=== PATIENT | male | born 1970 | race Caucasian/White ===

== ENCOUNTER 2017-09-13 10:10 | Emergency (ER) | payer SELFPAY ==
[2017-09-13] MEDS ORDERED: MORPHINE SULFATE 10 MG/ML INJ IM ONE (11:38)
[2017-09-13] MEDS ORDERED: ONDANSETRON 4 MG TAB.RAPDIS PO ONE (11:38)
--- NOTE | 2017-09-13 11:40 | ER Document Report ---
HPI - HPI Patient complains to provider of: Right arm is dislocated Onset: Other Onset/Duration: Sudden Quality of pain: Throbbing Severity: Moderate Pain Level: 4 Context: Patient complains of pain from right shoulder to right elbow for about the last week and a half. Has been seen by 2 different doctors in the last week and a half, but no x-rays have been done. Medications they have given have not helped. Patient denies injury. Associated Symptoms: None Exacerbated by: Movement Relieved by: Denies Similar symptoms previously: Yes Recently seen / treated by doctor: Yes - ROS ROS below otherwise negative: Yes Systems Reviewed and Negative: Yes All other systems reviewed and negative - CONSTITUTIONAL Constitutional: DENIES: Fever - EENT EENT: DENIES: Congestion - NEURO Neurology: DENIES: Headache - CARDIOVASCULAR Cardiovascular: DENIES: Chest pain - RESPIRATORY Respiratory: DENIES: Trouble Breathing - GASTROINTESTINAL Gastrointestinal: DENIES: Abdominal Pain - URINARY Urinary: DENIES: Dysuria - MUSCULOSKELETAL Musculoskeletal: REPORTS: Extremity pain - DERM Skin Color: Normal Past Medical History - General Information source: Patient - Social History Smoking Status: Unknown if Ever Smoked Chew tobacco use (# tins/day): No Frequency of alcohol use: None Drug Abuse: None Lives with: Family Family History: Reviewed & Not Pertinent - Medical History Medical History: Negative Surgical Hx: Negative Vertical Provider Document - CONSTITUTIONAL Agree With Documented VS: Yes Exam Limitations: No Limitations General Appearance: WD/WN, Mild Distress - HEENT HEENT: Atraumatic, Normocephalic - RESPIRATORY Respiratory: Breath Sounds Normal, No Respiratory Distress - CARDIOVASCULAR Cardiovascular: Regular Rate, Regular Rhythm - GI/ABDOMEN Gastrointestinal: Abdomen Soft - MUSCULOSKELETAL/EXTREMETIES Musculoskeletal/Extremeties: Tender Notes: Patient has shoulder sling on in room. Patient is tender from right shoulder down to right elbow. Pain with movement of arm, is unable to raise right arm. Neurovascular and sensation is intact - NEURO Level of Consciousness: Awake, Alert, Appropriate - DERM Integumentary: Warm, Dry Course - Re-evaluation Re-evalutation: 09/13/17 13:13 Patient made aware of x-ray results. Follow-up appointment scheduled with orthopedics today at 1430, patient scheduled to see Dr. Lind tomorrow at noon. Patient made aware of these appointments. Consulted Dr. Renteria regarding this patient H&P and follow-up. 09/13/17 19:32 Discharge - Discharge Clinical Impression: Lytic lesion of bone on x-ray Humerus shaft fracture Qualifiers: Encounter type: initial encounter Fracture type: closed Fracture morphology: unspecified fracture morphology Laterality: right Qualified Code(s): S42.301A - Unspecified fracture of shaft of humerus, right arm, initial encounter for closed fracture Condition: Good Disposition: HOME, SELF-CARE Additional Instructions: Pain medications as prescribed Follow-up with orthopedic today at 1430 as scheduled. Address is on your discharge paperwork Follow-up with Dr. Lind, oncologist, tomorrow at noon. Address is on your discharge paperwork Return as needed Prescriptions: Oxycodone HCl/Acetaminophen [Percocet 10-325 Mg Tablet] 1 each PO PRN PRN #20 tablet PRN Reason: Referrals: KATIA ARAUJO PA-C [ALLIED HEALTH PROFESSIONAL] - Follow up as needed DHEERAJ LIND MD [ACTIVE STAFF] - Follow up as needed
--- NOTE | 2017-09-13 12:25 | RADIOLOGY REPORT (SQ) ---
EXAM DESCRIPTION: HUMERUS RIGHT COMPLETED DATE/TIME: 09/13/2017 11:47 am REASON FOR STUDY: pain, decreased ROM COMPARISON: None. NUMBER OF VIEWS: Two views. TECHNIQUE: Two radiographic images were acquired of the right humerus to include elbow and shoulder in at least one projection. LIMITATIONS: None. FINDINGS: MINERALIZATION: Overall bone density is normal. However, there is a lytic lesion in the m id diaphysis of the right humerus measuring at least 3.5 cm in diameter, worrisome for a metastatic l esion. BONES: Pathologic fracture through a 3.5 cm lytic lesion in the right mid diaphysis, of the humerus. This is acute, and minimally angulated. No foreshortening at the fracture site. SOFT TISSUES: No obvious swelling or foreign body. OTHER: No other significant finding. IMPRESSION: Pathologic fracture right mid humeral diaphysis, through a 3.5 cm lytic lesion worrisome for metastatic disease. A primary plasmacytoma in the right humeral diaphysis is also possible. TECHNICAL DOCUMENTATION: JOB ID: [id number] [employer]- All Rights Reserved
[2017-09-13 13:40] VITALS: BP 131/114
== END 2017-09-13 13:40 | disposition home or self-care (01) ==
LOC: ER 10:10
DX: S42.301A Unspecified fracture of shaft of humerus, right arm, initial encounter for closed fracture (principal); X58.XXXA Exposure to other specified factors, initial encounter; M89.9 Disorder of bone, unspecified
CPT/HCPCS: 99283; 96372; 73060; S0119; J2270

== ENCOUNTER → 2017-09-15 | Outpatient (CLI) | payer SELFPAY ==
[2017-09-15 10:49] LABS: ABSOLUTE BASOPHILS # (AUTO) 0.1 10^3/uL (0.0-0.2); ABSOLUTE EOSINOPHILS # (AUTO) 0.2 10^3/uL (0.0-0.6); ABSOLUTE LYMPHOCYTES (AUTO) 1.1 10^3/uL (0.5-4.7); ABSOLUTE MONOCYTES (AUTO) 0.6 10^3/uL (0.1-1.4); ABSOLUTE NEUT (AUTO) 4.1 10^3/uL (1.7-8.2); BASOPHILS % (AUTO) 0.8 % (0-2); EOSINOPHILS % (AUTO) 2.7 % (0-6); HEMATOCRIT 43.6 % (37.9-51.0); HEMOGLOBIN 15.7 g/dL (13.5-17.0); HGB HCT DIFFERENCE 3.5; LYMPHOCYTES % (AUTO) 18.3 % (13-45); MEAN CORPUSCULAR HEMOGLOBIN 30.8 pg (27.0-33.4); MEAN CORPUSCULAR HGB CONC 36.1 g/dL (32.0-36.0); MEAN CORPUSCULAR VOLUME 85 fl (80-97); MONOCYTES % (AUTO) 9.7 % (3-13); RED BLOOD COUNT 5.11 10^6/uL (4.35-5.55); RED CELL DISTRIBUTION WIDTH 12.6 % (11.5-14.0); SEGMENTED NEUTROPHILS % (AUTO) 68.5 % (42-78)
[2017-09-15 11:27] LABS: ANION GAP 11 (5-19); BLOOD UREA NITROGEN 16 mg/dL (7-20); CALCIUM 9.9 mg/dL (8.4-10.2); CARBON DIOXIDE 31 mmol/L (22-30); CHLORIDE 98 mmol/L (98-107); CREATININE RESULT 1.01 mg/dL (0.52-1.25); GLUCOSE 100 mg/dL (75-110); POTASSIUM 3.8 mmol/L (3.6-5.0); SODIUM 140.4 mmol/L (137-145)
[2017-09-16 06:39] LABS: IMMUNOGLOBULIN A 100 mg/dL (90-386); IMMUNOGLOBULIN G 694 mg/dL (700-1600); IMMUNOGLOBULIN M 45 mg/dL (20-172)
[2017-09-16 07:22] LABS: IMMUNOGLOBULIN E 658 IU/mL (0-100)
[2017-09-16 16:39] LABS: A/G RATIO 1.4 (0.7-1.7); ALBUMIN 2 3.9 g/dL (2.9-4.4); ALPHA-1-GLOBULIN 2 0.2 g/dL (0.0-0.4); GAMMA GLOBULIN 0.7 g/dL (0.4-1.8); PROTEIN TOTAL SERUM 6.6 g/dL (6.0-8.5)
== END ==
LOC: OD 09:17
PROVIDERS: ATTEND Orthopaedic Surgery
DX: C79.51 Secondary malignant neoplasm of bone (principal)
CPT/HCPCS: 36415; 80048; 82784; 82785; 84165; 85025

== ENCOUNTER → 2017-09-16 | Outpatient (CLI) | payer SELFPAY ==
--- NOTE | 2017-09-16 12:45 | RADIOLOGY REPORT (SQ) ---
EXAM DESCRIPTION: NM WHOLE BODY BONE SCAN COMPLETED DATE/TIME: 09/16/2017 11:56 am REASON FOR STUDY: PATHOLOGICAL FRACTURE, RIGHT HUMERUS, INITIAL ENCOUNTER FOR FRACTURE(M84.42 M84.42 1A PATHOLOGICAL FRACTURE, RIGHT HUMERUS, INIT FOR FX COMPARISON: X-ray right humerus dated 09/13/2017. RADIONUCLIDE AND DOSE: 21.9 millicuries Tc99m MDP. The route of agent administration: Intravenous. ADDITIONAL DRUGS AND DOSES: None. TECHNIQUE: Routine delayed images at 3 hour post radionuclide injection acquired of the bony skeleto n including anterior and posterior whole-body projections and additional focused images as needed. LIMITATIONS: None. FINDINGS: BONES: Focal increased activity in the midshaft of the right humerus. Focal areas of acti vity in the posterior left 10th and 11th ribs, medial posterior left 7th rib, mid posterior right 6th rib, and anterior right 3rd and 6th ribs. Focal areas of activity in the right and left ankle and l eft great toe. KIDNEYS: Symmetric excretion without obstruction. OTHER: No other significant finding. IMPRESSION: 1. ACTIVITY IN THE MIDSHAFT OF THE RIGHT HUMERUS CORRESPONDING TO THE LYTIC LESION WITH PATHOLOGIC FR ACTURE. 2. SEVERAL FOCAL AREAS OF ACTIVITY IN THE RIBS DESCRIBED. THESE COULD BE RELATED TO PRIOR TRAUMA ALTHOUGH OTHER ETIOLOGIES SUCH BONY METASTASIS ARE POSSIBLE. RECOMMEND FOLLOW-UP WITH X-RAY OF TH E RIBS VERSUS CT CHEST. 3. NO OTHER AREAS OF ABNORMAL ACTIVITY IN THE SKELETON VISUALIZED. INCIDENTAL ACTIVITY IN THE ANK LES AND FEET LIKELY DUE TO DEGENERATIVE CHANGES. COMMENT: Quality measure 147: Current bone scan is compared with any available plain radiographs, p rior bone scans, and CT/MRI. TECHNICAL DOCUMENTATION: JOB ID: [id number] [employer]- All Rights Reserved
== END ==
LOC: RAD 08:09
PROVIDERS: ATTEND Orthopaedic Surgery
DX: M84.421A Pathological fracture, right humerus, initial encounter for fracture (principal)
CPT/HCPCS: 78306; A9561

== ENCOUNTER → 2017-09-19 | Outpatient (CLI) | payer SELFPAY ==
--- NOTE | 2017-09-19 12:44 | RADIOLOGY REPORT (SQ) ---
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 TECHNIQUE: CT scan of the chest performed using helical scanning technique with dynamic intravenous contrast injection. Images reviewed with lung, soft tissue and bone windows. Reconstructed coronal and sagittal MPR images reviewed. All images stored on PACS. All CT scanners at this facility use dose modulation, iterative reconstruction, and/or weight based d osing when appropriate to reduce radiation dose to as low as reasonably achievable (ALARA). [facility]: Dose Right [facility]: CareDose [facility]: Dose Right [facility]: Teradose 4D [facility]: [employer] CONTRAST TYPE AND DOSE: 100 cc Isovue 370- low osmolar. RENAL FUNCTION: See report for CT of the abdomen. RADIATION DOSE: Total exam DLP: 2765 mGy cm PE LIMITATIONS: None. FINDINGS: LUNGS AND PLEURA: There is an 11.6 mm pulmonary nodule anteriorly in the left upper lobe o n image 16 series 2 and image 31 series 6. There is a 42 x 41 x 31 mm mass in 1 of the anterior left ribs at the level of the aortic arch. This protrudes into the thoracic cavity. See image 17 series 2. There is a 10 mm subpleural nodule on the right the seen best on image 85 series 6 and image 43 series 2. HILAR AND MEDIASTINAL STRUCTURES: No identified masses or abnormal nodes. HEART AND VASCULAR STRUCTURES: No aneurysm or dissection. No central pulmonary emboli. No pericardi al effusion. HARDWARE: None in the chest. UPPER ABDOMEN: See separate report of the CT of the abdomen. THYROID AND OTHER SOFT TISSUES: No masses. No adenopathy. BONES: There is a 2 cm lytic lesion in 1 of the lower thoracic vertebrae. There is a mass in 1 of th e anterior left ribs as described above. There is a lytic lesion in the lower sternum. OTHER: No other significant finding. IMPRESSION: 1. There are 2 pulmonary nodules. Concerning for metastatic disease. 2. There are osseous lesions concerning for metastatic disease. TECHNICAL DOCUMENTATION: JOB ID: [id number] Quality ID # 436: Final reports with documentation of one or more dose reduction techniques (e.g., Au tomated exposure control, adjustment of the mA and/or kV according to patient size, use of iterative reconstruction technique) 2010 [facility] [employer]- All Rights Reserved
--- NOTE | 2017-09-19 13:04 | RADIOLOGY REPORT (SQ) ---
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 TECHNIQUE: CT scan of the abdomen and pelvis performed using helical scanning technique with dynamic intravenous contrast injection. No oral contrast. Images reviewed with lung, soft tissue, and bone windows. Reconstructed coronal and sagittal MPR images reviewed. Delayed images for evaluation of the urinary system also acquired. All images stored on PACS. All CT scanners at this facility use dose modulation, iterative reconstruction, and/or weight based d osing when appropriate to reduce radiation dose to as low as reasonably achievable (ALARA). [facility]: Dose Right [facility]: CareDose [facility]: Dose Right [facility]: Teradose 4D [facility]: [employer] CONTRAST TYPE AND DOSE: contrast/concentration: Isovue 370.00 mg/ml; Total Contrast Delivered: 100.0 ml; Total Saline Delivered: 72.0 ml RENAL FUNCTION: See separate report of the same date. RADIATION DOSE: Up-to-date CT equipment and radiation dose reduction techniques were employed. CTDIv ol: 16.0 - 18.7 mGy. DLP: 2765 mGy-cm.. LIMITATIONS: Positioning. FINDINGS: LOWER CHEST: See separate report of the CT of the chest. LIVER: Normal size. No masses. No dilated ducts. SPLEEN: Normal size. No focal lesions. PANCREAS: No masses. No significant calcifications. No adjacent inflammation or peripancreatic fluid collections. Pancreatic duct not dilated. GALLBLADDER: Gallstones. No inflammatory changes to suggest cholecystitis. ADRENAL GLANDS: No significant masses or asymmetry. RIGHT KIDNEY AND URETER: No solid masses. No significant calcifications. No hydronephrosis or hyd roureter. LEFT KIDNEY AND URETER: No solid masses. No significant calcifications. No hydronephrosis or hydr oureter. AORTA AND VESSELS: No aneurysm. RETROPERITONEUM: No retroperitoneal adenopathy, hemorrhage or masses. BOWEL AND PERITONEAL CAVITY: No masses or inflammatory changes. No free fluid or peritoneal masses. APPENDIX: Normal. PELVIS: No mass. No free fluid. Normal bladder. ABDOMINAL WALL: No masses. No hernias. BONES: Lytic lesion in the left ilium measuring about 2.9 cm maximum diameter. No pathologic fractur e. OTHER: No other significant finding. IMPRESSION: Lytic lesion left ilium, most likely metastatic disease or myeloma. TECHNICAL DOCUMENTATION: JOB ID: [id number] Quality ID # 436: Final reports with documentation of one or more dose reduction techniques (e.g., Au tomated exposure control, adjustment of the mA and/or kV according to patient size, use of iterative reconstruction technique) 2010 [employer]- All Rights Reserved
== END ==
LOC: RAD 09:17
PROVIDERS: ATTEND Orthopaedic Surgery
DX: C79.51 Secondary malignant neoplasm of bone (principal)
CPT/HCPCS: 71260; 74177

== ENCOUNTER 2017-09-22 08:45 | Day surgery (SDC) | payer SELFPAY ==
[2017-09-22 09:04] LABS: HEMOGLOBIN 16.5 g/dL (13.5-17.0); HGB HCT DIFFERENCE 3.5; MEAN CORPUSCULAR HEMOGLOBIN 30.5 pg (27.0-33.4); MEAN CORPUSCULAR HGB CONC 35.8 g/dL (32.0-36.0); MEAN CORPUSCULAR VOLUME 85 fl (80-97); RED CELL DISTRIBUTION WIDTH 12.7 % (11.5-14.0)
[2017-09-22 09:48] LABS: PROTHROMBIN TIME 11.9 SEC (11.4-15.4)
[2017-09-22 09:49] LABS: PARTIAL THROMBOPLASTIN TIME 27.8 SEC (23.5-35.8)
[2017-09-22 09:57] LABS: BLOOD UREA NITROGEN 15 mg/dL (7-20); CREATININE RESULT 0.96 mg/dL (0.52-1.25)
[2017-09-22] MEDS ORDERED: MIDAZOLAM 2 MG/2 ML INJ ONE ×2 (10:26→11:01)
[2017-09-22] MEDS ORDERED: FENTANYL CITRATE INJ/PF 100 MCG/2 ML AMPUL ONE ×2 (10:27→11:02)
[2017-09-22] MEDS ORDERED: OXYCODONE HCL IR 5 MG TABLET ONE (11:51)
[2017-09-22] MEDS ORDERED: OXYCODONE-ACETAMINOPHEN 5-325 MG TABLET ONE (11:51)
--- NOTE | 2017-09-22 12:29 | RADIOLOGY REPORT (SQ) ---
EXAM DESCRIPTION: CT BIOPSY LUNG/MEDIASTINUM; CT NEEDLE PLACEMENT COMPLETED DATE/TIME: 09/22/2017 11:18 am; 09/22/2017 11:17 am REASON FOR STUDY: SECONDARY MALIGNANT NEOPLASM OF UNSPECIFIED LUNG C78.00 SECONDARY MALIGNANT NEOPL ASM OF UNSPECIFIED LUNG COMPARISON: None. TECHNIQUE: CT guided biopsy of the mass in the left anterior chest wall performed with conscious sed ation. CT Fluoroscopy Time: 10.[address] scanners at this facility use dose modulation, iterative reconstruction, and/or weight based d osing when appropriate to reduce radiation dose to as low as reasonably achievable (ALARA). [facility]: Dose Right [facility]: CareDose [facility]: Dose Right [facility]: Teradose 4D [facility]: [employer] RADIATION DOSE: Up-to-date CT equipment and radiation dose reduction techniques were employed. CTDI vol: 13.3 - 19.8 mGy. DLP: 789 mGy-cm.mGy. FINDINGS: The procedure was discussed with the patient and the patient agreed to the procedure. Prio r to the procedure, a time out was performed to verify the patient's identity and planned procedure. IV sedation was administered and physician direction by the registered nurse using 3 milligrams of Ve rsed and 200 micrograms of fentanyl. Physiologic monitoring was provided before, during, and after se dation. The total sedation time was 48 minutes. Documentation face to face time, the performing proceduralist, spent monitoring the patient: [address] scanning was performed to localize the percutaneous site for the biopsy approach. After sterile skin prep and local lidocaine for skin and deep tissue anesthesia, a coaxial biopsy nee dle was used to obtain multiple cores of tissue. The biopsy tissue was submitted to the lab in forma tanya. There were no immediate complications. Pathology is pending at the time of dictation. IMPRESSION: CT GUIDED BIOPSY OF THE MASS IN THE LEFT ANTERIOR CHEST WALL PERFORMED WITHOUT IMMEDIATE COMPLICATION. PATHOLOGY PENDING. COMMENT: Quality ID 145: Final reports for procedures using fluoroscopy that document radiation exp osure indices, or exposure time and number of fluorographic images (if radiation exposure indices are not available) Patient medication list reviewed: Yes- Quality ID# 130:Eligible professional attests to documenting i n the medical record they obtained, updated, or reviewed the patient's current medications.. TECHNICAL DOCUMENTATION: JOB ID: [id number] Quality ID# 436: Final reports with documentation of one or more dose reduction techniques (e.g., Aut omated exposure control, adjustment of the mA and/or kV according to patient size, use of iterative r econstruction technique) 2010 [employer]- All Rights Reserved
[2017-09-22 15:01] VITALS: BP 148/96
== END 2017-09-22 13:50 | disposition home or self-care (01) ==
LOC: RAD 08:45
PROVIDERS: ATTEND Orthopaedic Surgery
PROC: 0BBL3ZX Excision of Left Lung, Percutaneous Approach, Diagnostic (ICD-10-PCS; principal; 2017-09-22)
DX: C78.00 Secondary malignant neoplasm of unspecified lung (principal); M84.421A Pathological fracture, right humerus, initial encounter for fracture
CPT/HCPCS: 36415; 84520; 82565; 85027; 85610; 85730; 88342 ×2; 88341 ×2; 88305 ×2; 77012; 32405; J2250; J3010

== ENCOUNTER 2017-10-03 09:02 | Day surgery (SDC) | payer SELFPAY ==
[2017-09-29 10:03] LABS: AMORPHOUS SEDIMENT,URINE TRACE /HPF; APPEARANCE,URINE CLOUDY; BILIRUBIN,URINE NEGATIVE (NEGATIVE); GLUCOSE, URINE NEGATIVE (NEGATIVE); KETONES,URINE NEGATIVE (NEGATIVE); LEUKOCYTE ESTERASE,URINE NEGATIVE (NEGATIVE); NITRITE,URINE NEGATIVE (NEGATIVE); PROTEIN,URINE NEGATIVE (NEGATIVE); URINE SPECIFIC GRAVITY 1.014; UROBILINOGEN,URINE NEGATIVE mg/dL (<2.0)
[2017-09-29 10:12] LABS: ABSOLUTE EOSINOPHILS # (AUTO) 0.2 10^3/uL (0.0-0.6); ABSOLUTE LYMPHOCYTES (AUTO) 1.4 10^3/uL (0.5-4.7); ABSOLUTE MONOCYTES (AUTO) 0.5 10^3/uL (0.1-1.4); ABSOLUTE NEUT (AUTO) 4.3 10^3/uL (1.7-8.2); BASOPHILS % (AUTO) 0.8 % (0-2); EOSINOPHILS % (AUTO) 2.7 % (0-6); HEMATOCRIT 44.6 % (37.9-51.0); HEMOGLOBIN 15.8 g/dL (13.5-17.0); HGB HCT DIFFERENCE 2.8; LYMPHOCYTES % (AUTO) 21.9 % (13-45); MEAN CORPUSCULAR HEMOGLOBIN 30.4 pg (27.0-33.4); MEAN CORPUSCULAR HGB CONC 35.6 g/dL (32.0-36.0); MEAN CORPUSCULAR VOLUME 86 fl (80-97); MONOCYTES % (AUTO) 7.7 % (3-13); RED BLOOD COUNT 5.21 10^6/uL (4.35-5.55); RED CELL DISTRIBUTION WIDTH 12.9 % (11.5-14.0); SEGMENTED NEUTROPHILS % (AUTO) 66.9 % (42-78); WHITE BLOOD COUNT 6.4 10^3/uL (4.0-10.5)
[2017-09-29 10:47] LABS: ANION GAP 13 (5-19); BLOOD UREA NITROGEN 16 mg/dL (7-20); CALCIUM 10.2 mg/dL (8.4-10.2); CARBON DIOXIDE 29 mmol/L (22-30); CHLORIDE 103 mmol/L (98-107); CREATININE RESULT 1.06 mg/dL (0.52-1.25); GLUCOSE 96 mg/dL (75-110); POTASSIUM 4.4 mmol/L (3.6-5.0); SODIUM 145.1 mmol/L (137-145)
--- NOTE | 2017-09-29 10:58 | RADIOLOGY REPORT (SQ) ---
EXAM DESCRIPTION: CHEST PA/LATERAL COMPLETED DATE/TIME: 09/29/2017 10:48 am REASON FOR STUDY: PRE OP COMPARISON: None. NUMBER OF VIEWS: Two view. TECHNIQUE: Frontal and lateral radiographic views of the chest acquired. LIMITATIONS: None. FINDINGS: LUNGS AND PLEURA: 4 cm mass project over the left upper lobe secondary to a mass involvin g the left anterior chest wall. Recent CT-guided biopsy of this lesion. No pneumothorax. Lungs oth erwise clear. MEDIASTINUM AND HILAR STRUCTURES: No masses or contour abnormalities. HEART AND VASCULATURE: Heart normal size. No evidence for failure. BONY STRUCTURES: No acute findings. HARDWARE: None. OTHER: No other significant finding. IMPRESSION: Mass projected over the left upper lung zone secondary to mass involving the left anteri or chest wall. Recent CT-guided biopsy of this lesion. Chest is otherwise unremarkable. TECHNICAL DOCUMENTATION: JOB ID: [id number] [employer]- All Rights Reserved
--- NOTE | 2017-09-29 12:53 | EKG REPORT ---
SEVERITY:- NORMAL ECG - SINUS RHYTHM : Confirmed by: Sonny Reardon MD 29-Sep-2017 12:52:31
[~2017-10-03 09:02] MED LIST: BUPIVACAINE HCL 0.5%-EPI 1:200000 INJ/PF 30 ML VIAL ONE; LIDOCAINE 0.5% INJ-PF (5 MG/ML) 50 ML SDV SUBCUT PRN
[2017-10-03] MEDS: LACTATED RINGERS 1000 ML IV PRN ×2 (09:45→18:08)
[2017-10-03] MEDS ORDERED: LIDOCAINE 2% INJ-PF (20 MG/ML) 10 ML AMPUL ONE (10:38)
[2017-10-03] MEDS ORDERED: ONDANSETRON HCL INJ/PF 4 MG/2 ML SDV ONE ×2 (10:38→13:18)
[2017-10-03] MEDS ORDERED: FENTANYL CITRATE INJ/PF 250 MCG/5 ML AMPULE ONE (10:38)
[2017-10-03] MEDS ORDERED: PROPOFOL INJ 200 MG/20 ML VIAL IV ONE (10:38)
[2017-10-03] MEDS ORDERED: MIDAZOLAM 2 MG/2 ML INJ ONE (10:38)
[2017-10-03] MEDS ORDERED: ACETAMINOPHEN 100 ML IV ONE (10:39)
[2017-10-03] MEDS: CLINDAMYCIN 600 MG/D5W RTU 600 MG/50 ML RTUPB IV PRN ×3 (11:20→18:08)
[2017-10-03] MEDS ORDERED: ONDANSETRON HCL INJ/PF 4 MG/2 ML SDV IV PRN (12:08)
[2017-10-03] MEDS ORDERED: MORPHINE SULFATE 10 MG/ML INJ IV PRN (12:08)
[2017-10-03] MEDS ORDERED: PROMETHAZINE HCL INJ 25 MG/1 ML VIAL IV PRN ×2 (12:08)
[2017-10-03] MEDS ORDERED: OXYCODONE-ACETAMINOPHEN 5-325 MG TABLET PO PRN ×2 (12:08)
[2017-10-03] MEDS ORDERED: MEPERIDINE HCL/PF INJ 25 MG/1 ML DISP.SYRIN IV PRN (12:08)
[2017-10-03] MEDS ORDERED: DIPHENHYDRAMINE HCL 50 MG/ML VIAL IV PRN (12:08)
[2017-10-03] MEDS ORDERED: FENTANYL CITRATE INJ/PF 100 MCG/2 ML AMPUL IV PRN ×3 (12:08)
[2017-10-03] MEDS ORDERED: HYDROMORPHONE HCL INJ/PF 2 MG/ML AMPULE ONE (12:56)
[2017-10-03] MEDS ORDERED: MEPERIDINE HCL/PF INJ 25 MG/1 ML DISP.SYRIN ONE (13:01)
[2017-10-03] MEDS ORDERED: MORPHINE SULFATE 10 MG/ML INJ ONE (13:12)
[2017-10-03] MEDS: FENTANYL CITRATE INJ/PF 100 MCG/2 ML AMPUL ONE ×2 (13:15→13:20)
--- NOTE | 2017-10-03 13:18 | Operative Report ---
Operative Report DATE OF SURGERY: 10/03/17 PREOPERATIVE DIAGNOSIS: Pathologic fracture right humerus. Multiple myeloma OPERATION: Marrow biopsy. Open reduction internal fixation right humerus fracture SURGEON: NAHID BLAIR 1ST ICT ANALYST: KATIA ARAUJO ANESTHESIA: GA TISSUE REMOVED OR ALTERED: Bone and marrow elements 2 hematology oncology ESTIMATED BLOOD LOSS: 200 PROCEDURE: With the patient beachchair position the operative table the right upper extremity forequarter prepped and draped in sterile fashion. A pin was placed percutaneously into the proximal humerus. A combined reamer is then used to fashion a cortical opening. A ball-tipped guide saniya was placed down the humerus and a humeral length of 260 mm is recorded. Subsequently the canal was reamed with flexible reamers until a 10 mm reamer is passed. A [employer] nail titanium 9 mm x 260 mm was passed down the canal and locks with a single screw proximally. A locking distally considerable problem is experienced. First an anterior posterior screw was placed but will not advance through the nail. The head became stripped and the screw bent. I made a decision that was better to leave the screw partially in then to expose the entire distal femur to retrieve it. To make up for marginally adequate screw anterior posterior I then attempted to place a lateral to medial screw which led to breaking of the drill bit in the foramen. A second attempt to place a lateral to medial screw more proximally likewise ended up with a broken drill bit in the foramen. At this point I felt that while the results was not ideal it was probably better to accept the current situation then to prolong the case. The wounds were irrigated and closed. Patient was returned to the PACU in satisfactory condition.
[2017-10-03] MEDS ORDERED: KETOROLAC TROMETHAMINE 60 MG/2 ML SDV ONE (13:24)
[2017-10-03] MEDS ORDERED: SUCCINYLCHOLINE CHLORIDE INJ 200 MG/10 ML VIAL ONE (13:24)
[2017-10-03] MEDS ORDERED: ONDANSETRON 4 MG TAB.RAPDIS SL PRN (14:11)
--- NOTE | 2017-10-03 17:02 | RADIOLOGY REPORT (SQ) ---
EXAM DESCRIPTION: NO CHG FLUORO; HUMERUS RIGHT COMPLETED DATE/TIME: 10/03/2017 3:00 pm REASON FOR STUDY: ORIF RT HUMERUS ASSISTED WITH FLUORO IN OR C90.00 MULTIPLE MYELOMA NOT HAVING ACH IEVED REMISSION M84.421A PATHOLOGICAL FRACTURE, RIGHT HUMERUS, INIT FOR FX COMPARISON: Radiographs 09/13/2017. FLUOROSCOPY TIME: 2.6 minutes. 6 images saved to PACS. TECHNIQUE: Intra-operative images acquired during surgical procedure to evaluate progress. NUMBER OF IMAGES: 6 LIMITATIONS: None. FINDINGS: Images reveal open reduction internal fixation of pathologic fracture of the humerus. Sli ght displacement at the fracture site. Distal interlocking screw incompletely deployed and slightly bent on the final image. IMPRESSION: IMAGE(S) OBTAINED DURING PROCEDURE. COMMENT: Quality ID 145: Final reports for procedures using fluoroscopy that document radiation exp osure indices, or exposure time and number of fluorographic images (if radiation exposure indices are not available) Please consult full operative report of the attending physician for description of the procedure. TECHNICAL DOCUMENTATION: JOB ID: [id number] [employer] All Rights Reserved
[2017-10-03] MEDS: OXYCODONE HCL IR 5 MG TABLET PO PRN (19:04)
[2017-10-04] MEDS: OXYCODONE HCL IR 5 MG TABLET PO PRN ×2 (01:18→07:45)
[2017-10-04] MEDS ORDERED: OXYCODONE HCL IR 5 MG TABLET PO ONE (07:00)
--- NOTE | 2017-10-04 07:18 | PDOC DISCHARGE SUMMARY ---
General - Admit/Disc Date/PCP Admission Date/Primary Care Provider: NICOLASA CORONADO MD Discharge Date: 10/04/17 - Discharge Diagnosis (1) Pathologic fracture of right humerus Is this a current diagnosis for this admission?: Yes - Additional Information Discharge Diet: As Tolerated, Regular Discharge Activity: Activity As Tolerated Home Medications: Oxycodone HCl/Acetaminophen [Percocet 10-325 Mg Tablet] 1 each PO PRN PRN #20 tablet 09/13/17 History of Present Illness History of Present Illness: MARCY STILL is a 46 year old male diagnosed with multiple myeloma with a pathologic fracture of the distal shaft of the right humerus. He was admitted to the OR and underwent elective open reduction internal fixation of right humeral fracture. Hospital Course Hospital Course: 46-year-old white male with pathologic fracture of right humerus who was admitted to the OR and underwent elective open reduction internal fixation of distal humeral shaft fracture. He was taken to postanesthesia care in satisfactory condition. He was taken to the surgical floor where his pain was managed by nursing staff and Dr. Vaz. He will be discharged home today. Physical Exam Vital Signs: Temp Pulse Resp BP Pulse Ox 37.0 C 85 17 152/92 H 96 10/04/17 05:38 10/04/17 05:38 10/04/17 05:38 10/04/17 05:38 10/04/17 05:38 Intake & Output 10/03/17 10/04/17 10/05/17 06:59 06:59 06:59 Intake Total 2630 Output Total 200 Balance 2430 Weight 99.79 kg General appearance: PRESENT: no acute distress, well-developed, well-nourished Head exam: PRESENT: atraumatic, normocephalic Respiratory exam: PRESENT: unlabored Pulses: PRESENT: normal dorsalis pedis pul, +2 pedal pulses bilateral Vascular exam: PRESENT: normal capillary refill Additional comments: Patient is sitting upright in hospital bed with right upper extremity in extension. He is slightly tender to palpation along the distal humerus. His OpSite honeycomb dressings are clean dry and intact. He notes his arm feels more stable now. He has minimal manual edema his sensory and motor functions are intact and his distal neurovascular exam is intact. Musculoskeletal exam: PRESENT: ambulatory Additional comments: Patient notes that he has more stability in the right upper extremity. He has appropriate strength and range of motion for this stage in the healing process in terms of flexion extension pronation supination abduction and abduction. He has brisk capillary refill to fingers on bilateral upper extremities and his distal neurovascular exam is intact. He is ambulatory. Neurological exam: PRESENT: alert, awake, oriented to person, oriented to place , oriented to time, oriented to situation, CN II-XII grossly intact. ABSENT: motor sensory deficit Psychiatric exam: PRESENT: appropriate affect, normal mood. ABSENT: homicidal ideation, suicidal ideation Skin exam: PRESENT: dry, intact, warm. ABSENT: cyanosis, rash Results Laboratory Results: 09/29/17 09:43 09/29/17 09:43 Impressions: Chest X-Ray 09/29/17 10:19 IMPRESSION: Mass projected over the left upper lung zone secondary to mass involving the left anterior chest wall. Recent CT-guided biopsy of this lesion. Chest is otherwise unremarkable. Fluoroscopy 10/03/17 00:00 IMPRESSION: IMAGE(S) OBTAINED DURING PROCEDURE. Humerus X-Ray 10/03/17 00:00 IMPRESSION: IMAGE(S) OBTAINED DURING PROCEDURE. Plan Discharge Plan: 46-year-old white male diagnosed with multiple myeloma 1 day status post open reduction internal fixation of pathologic fracture of the right humerus. Patient tolerated the surgery well and has had his pain well controlled while in the hospital. Patient will be discharged to his home today. He will follow- up with Dr. Vaz and Dilshad HA at [facility] for surgery 2 weeks postoperatively for staple removal and reevaluation. Time Spent: Less than 30 Minutes
[2017-10-04 08:41] VITALS: BP 163/94
== END 2017-10-04 09:51 | disposition home or self-care (01) ==
LOC: OROUT 09:02 → 4S 14:44 → OROUT 10-04 09:51
PROVIDERS: ATTEND Orthopaedic Surgery
PROC: 0PSC04Z Reposition Right Humeral Head with Internal Fixation Device, Open Approach (ICD-10-PCS; principal; 2017-10-03 11:15)
DX: M84.421A Pathological fracture, right humerus, initial encounter for fracture (principal); C90.00 Multiple myeloma not having achieved remission; F17.210 Nicotine dependence, cigarettes, uncomplicated; Z88.0 Allergy status to penicillin; Z86.14 Personal history of Methicillin resistant Staphylococcus aureus infection
CPT/HCPCS: 93005; 36415; 85025; 80048; 81001; 71020; 73060; 93010; 23615; 38221; J2250; J3490 ×2; J1885; S0119; J3010 ×2; J2175; J2270; J1170; J0330; J2405; J7120; J2704; J0131; 01740

== ENCOUNTER → 2018-05-12 | Outpatient (CLI) | payer MEDICAID ==
--- NOTE | 2018-05-12 10:49 | RADIOLOGY REPORT (SQ) ---
EXAM DESCRIPTION: CT ABD/PELVIS WITH IV ONLY; CT CHEST WITH COMPLETED DATE/TIME: 05/12/2018 9:07 am REASON FOR STUDY: MULTIPLE MYELOMA (C90.00) C90.00 MULTIPLE MYELOMA NOT HAVING ACHIEVED REMISSION COMPARISON: CT chest 09/22/2017 CT chest abdomen pelvis 09/19/2018 CONTRAST TYPE AND DOSE: contrast/concentration: Isovue 370.00 mg/ml; Total Contrast Delivered: 100.0 ml; Total Saline Delivered: 72.0 ml RENAL FUNCTION: Creatinine 1.1 TECHNIQUE: CT scan of the chest performed using helical scanning technique with dynamic intravenous contrast injection. Images reviewed with lung, soft tissue and bone windows. Reconstructed coronal a nd sagittal MPR images reviewed. All images stored on PACS. CT scan of the abdomen and pelvis performed with intravenous and without oral contrastusing helical s helga technique with dynamic intravenous contrast injection. Images reviewed with lung, soft tissu e and bone windows. Reconstructed coronal and sagittal MPR images reviewed. Delayed images for eval uation of the urinary system also acquired and evaluated. All images stored on PACS. All CT scanners at this facility use dose modulation, iterative reconstruction, and/or weight based d osing when appropriate to reduce radiation dose to as low as reasonably achievable (ALARA). [facility]: Dose Right [facility]: CareDose [facility]: Dose Right [facility]: Teradose 4D [facility]: Smart Technologies RADIATION DOSE: CT Rad equipment meets quality standard of care and radiation dose reduction techniq ues were employed. CTDIvol: 12.8 - 14.2 mGy. DLP: 2046 mGy-cm. . LIMITATIONS: None. FINDINGS: CHEST: LUNGS AND PLEURA: Stable 10 mm nodule left upper lobe axial image 31, compared to 09/19/2017. Stable 8 mm right lower lobe nodule in the lateral costophrenic sulcus axial image 77, compared to 09/19/20 17. No new pulmonary nodules. No pleural effusion. No pneumothorax. . HILAR AND MEDIASTINAL STRUCTURES: No identified masses or abnormal nodes. HEART AND VASCULAR STRUCTURES: No aneurysm or dissection. No central pulmonary emboli. No pericardi al effusion. HARDWARE: None. THYROID AND OTHER SOFT TISSUES: No masses. No adenopathy. BONES: MD 4.1 x 3.1 cm left anterior 2nd rib lesion seen on 09/19/2017 has resolved. Sclerotic stable size myeloma lesions compared to 09/19/2017 are present as follows: 2 cm T10 vertebral body lesion without significant compression 1.4 cm T5 vertebral body lesion without compression 8 mm T12 lesion 2.4 cm sclerotic sternal lesion 5 mm dorsal manubrium sternum lesion OTHER: No other significant finding. ABDOMEN AND PELVIS: LIVER: Normal size. No masses. No dilated ducts. SPLEEN: Normal size. No focal lesions. PANCREAS: No masses. No significant calcifications. No adjacent inflammation or peripancreatic fluid collections. Pancreatic duct not dilated. GALLBLADDER: No identified stones by CT criteria. No inflammatory changes to suggest cholecystitis. ADRENAL GLANDS: No significant masses or asymmetry. RIGHT KIDNEY AND URETER: No solid masses. No significant calcification. No hydronephrosis or hydroure ter. LEFT KIDNEY AND URETER: No solid masses. No significant calcification. No hydronephrosis or hydrouret er. AORTA AND VESSELS: No aneurysm. No dissection. Renal arteries, SMA, celiac without stenosis. RETROPERITONEUM: No retroperitoneal adenopathy, hemorrhage or masses. BOWEL AND PERITONEAL CAVITY: No masses or inflammatory changes. No free fluid or peritoneal masses. APPENDIX: Normal. ABDOMINAL WALL: No masses. No hernias. PELVIS: No mass or free fluid. Normal bladder. BONES: There are multiple new bony lesions throughout the lumbar spine less than 1 cm in size in the L3 vertebral body, L4 vertebral body, sacrum, symphysis pubis, and bilateral innominate bones. Larger myeloma lytic lesions with peripheral sclerosis are stable as follows: 1.6 cm right L2 vertebral body Right anterior superior iliac spine region 3 cm lesion Left innominate bone 3.6 cm lesion OTHER: No other significant finding. IMPRESSION: Resolved left anterior 2nd rib mass Stable bilateral lung nodules Previously identified Multiple myeloma lesions in the skeleton exhibit peripheral sclerosis from radha tment effect. Multiple new tiny lytic lesions in the lumbar spine, sacrum, and bony pelvis TECHNICAL DOCUMENTATION: JOB ID: [id number] Quality ID # 436: Final reports with documentation of one or more dose reduction techniques (e.g., Au tomated exposure control, adjustment of the mA and/or kV according to patient size, use of iterative reconstruction technique) 2010 [employer]- All Rights Reserved Reading location - IP/workstation name: [id number]
--- NOTE | 2018-05-12 13:19 | RADIOLOGY REPORT (SQ) ---
EXAM DESCRIPTION: NM WHOLE BODY BONE SCAN COMPLETED DATE/TIME: 05/12/2018 12:55 pm REASON FOR STUDY: MULTIPLE MYELOMA (C90.00) C90.00 MULTIPLE MYELOMA NOT HAVING ACHIEVED REMISSION COMPARISON: Bone scan 09/16/[address] 05/12/2018 RADIONUCLIDE AND DOSE: 20 millicuries Tc99m HDP. The route of agent administration: Intravenous. ADDITIONAL DRUGS AND DOSES: None. TECHNIQUE: Routine delayed images at 3 hours post radionuclide injection acquired of the bony skelet on including anterior and posterior whole-body projections and additional focused images as needed. LIMITATIONS: None. FINDINGS: BONES: There is focal uptake in the mid right humerus. There is mild uptake in the proxim al left 7th rib, T4 and T2 vertebrae, coracoid process of the left shoulder, left the 11th rib tubular stock glass bulb machine former olaterally, mild uptake in the left 8th and 10th ribs. Focal uptake in the right femur at the juncti on of the mid and distal thirds. KIDNEYS: Symmetric excretion without obstruction. OTHER: No other significant finding. IMPRESSION: Abnormal skeletal uptake as described. The patient is known to have had a pathological fracture of the right humerus. Lesions of multiple myeloma can sometimes be seen on bone scan. Ther e are new areas of uptake in the coracoid process of the left shoulder and in the right femur. Is th ere history of neoplasm other than multiple myeloma? COMMENT: Quality measure 147: Current bone scan is compared with any available plain radiographs, p rior bone scans, and CT/MRI. TECHNICAL DOCUMENTATION: JOB ID: [id number] [employer]- All Rights Reserved Reading location - IP/workstation name: [email or web address]
== END ==
LOC: RAD 07:49
PROVIDERS: ATTEND Internal Medicine
DX: C90.00 Multiple myeloma not having achieved remission (principal)
CPT/HCPCS: 78306; 71260; 74177; A9561

== ENCOUNTER → 2018-06-13 | Outpatient (CLI) | payer MEDICAID ==
--- NOTE | 2018-06-13 10:56 | RADIOLOGY REPORT (SQ) ---
EXAM DESCRIPTION: ELBOW RIGHT AP/LAT COMPLETED DATE/TIME: 06/13/2018 10:39 am REASON FOR STUDY: UNSP INJURY OF RIGHT SHOULDER AND UPPER ARM, INIT ENCNTR S49.91XA UNSP INJURY OF RIGHT SHOULDER AND UPPER ARM, INIT E COMPARISON: None. NUMBER OF VIEWS: Two views TECHNIQUE: AP and lateral radiographic images acquired of the right elbow. LIMITATIONS: None. FINDINGS: MINERALIZATION: Normal. BONES: No acute fracture or dislocation. There are a couple well demarcated lucent areas in the dist al humerus which may represent involvement by the patient's known multiple myeloma. JOINT: No effusion. SOFT TISSUES: No soft tissue swelling. No foreign body. OTHER: No other significant finding. IMPRESSION: No acute changes. There are couple well demarcated lucent areas in the distal humerus w hich may represent involvement by the patient's known multiple myeloma. TECHNICAL DOCUMENTATION: JOB ID: [id number] [employer]- All Rights Reserved Reading location - IP/workstation name: [email or web address]
--- NOTE | 2018-06-13 10:56 | RADIOLOGY REPORT (SQ) ---
EXAM DESCRIPTION: FOREARM RIGHT COMPLETED DATE/TIME: 06/13/2018 10:39 am REASON FOR STUDY: UNSP INJURY OF RIGHT SHOULDER AND UPPER ARM, INIT ENCNTR S49.91XA UNSP INJURY OF RIGHT SHOULDER AND UPPER ARM, INIT E COMPARISON: None. NUMBER OF VIEWS: Two views. TECHNIQUE: Two radiographic images acquired of the right forearm, including elbow and wrist in at le ast one projection. LIMITATIONS: None. FINDINGS: MINERALIZATION: Normal. BONES: No acute fracture. No worrisome bone lesions. SOFT TISSUES: No obvious swelling or foreign body. OTHER: No other significant finding. IMPRESSION: NEGATIVE STUDY OF THE RIGHT FOREARM. NO RADIOGRAPHIC EVIDENCE OF ACUTE INJURY. TECHNICAL DOCUMENTATION: JOB ID: [id number] [employer]- All Rights Reserved Reading location - IP/workstation name: [email or web address]
--- NOTE | 2018-06-13 10:58 | RADIOLOGY REPORT (SQ) ---
EXAM DESCRIPTION: HUMERUS RIGHT COMPLETED DATE/TIME: 06/13/2018 10:39 am REASON FOR STUDY: UNSP INJURY OF RIGHT SHOULDER AND UPPER ARM, INIT ENCNTR S49.91XA UNSP INJURY OF RIGHT SHOULDER AND UPPER ARM, INIT E COMPARISON: None. NUMBER OF VIEWS: Two views. TECHNIQUE: Two radiographic images were acquired of the right humerus to include elbow and shoulder in at least one projection. LIMITATIONS: None. FINDINGS: MINERALIZATION: Normal. BONES: No acute fracture or dislocation. There is bony deformity of the mid humerus presumably relat ed to previous trauma. 2 small lucent areas are identified at the level of the distal humerus presum ably representing involvement by the patient's known multiple myeloma. SOFT TISSUES: No obvious swelling or foreign body. OTHER: Intramedullary saniya is identified transfixing the humerus. IMPRESSION: No acute fracture or dislocation. Bony deformity of the mid humerus presumably related to previous trauma. 2 small lucent areas are identified at the level of the distal humerus presumabl y representing involvement by the patient's known multiple myeloma. TECHNICAL DOCUMENTATION: JOB ID: [id number] [employer]- All Rights Reserved Reading location - IP/workstation name: [email or web address]
--- NOTE | 2018-06-13 11:00 | RADIOLOGY REPORT (SQ) ---
"EXAM DESCRIPTION: SHOULDER RIGHT 2 OR MORE VIEWS COMPLETED DATE/TIME: 06/13/2018 10:40 am REASON FOR STUDY: UNSP INJURY OF RIGHT SHOULDER AND UPPER ARM, INIT ENCNTR S49.91XA UNSP INJURY OF RIGHT SHOULDER AND UPPER ARM, INIT E COMPARISON: None. NUMBER OF VIEWS: Three views. TECHNIQUE: Internal rotation, external rotation, and Y view images acquired of the right shoulder. LIMITATIONS: None. FINDINGS: MINERALIZATION: Normal. BONES: Calcific density is identified at the level of the greater tuberosity which I cannot exclude a s an avulsion type fracture although this may be related to previous trauma or postsurgical changes. JOINTS: No dislocation. VISUALIZED LUNGS AND RIBS: No pneumothorax. No rib fracture. SOFT TISSUES: No radiopaque foreign body. OTHER: The proximal portion of an intramedullary saniya is identified in the proximal humerus. IMPRESSION: Calcific density is identified at the level of the greater tuberosity which I cannot exc lude as an avulsion type fracture although this may be related to previous trauma or postsurgical enoc nges. No other evidence for fracture is seen. Other findings as noted above TECHNICAL DOCUMENTATION: JOB ID: [id number] [employer] | [employer]- All Rights Reserved Reading location - IP/workstation name: [email or web address]"
== END ==
LOC: RAD 09:55
PROVIDERS: ATTEND Internal Medicine
DX: S49.91XA Unspecified injury of right shoulder and upper arm, initial encounter (principal); X58.XXXA Exposure to other specified factors, initial encounter; C90.00 Multiple myeloma not having achieved remission

== ENCOUNTER → 2019-01-25 | Outpatient (CLI) | payer MEDICAID ==
--- NOTE | 2019-01-25 11:35 | RADIOLOGY REPORT (SQ) ---
EXAM DESCRIPTION: KNEE LEFT 2 VIEWS COMPLETED DATE/TIME: 01/25/2019 10:28 am REASON FOR STUDY: M25.562 LEFT KNEE PAIN M25.562 PAIN IN LEFT KNEE COMPARISON: None. NUMBER OF VIEWS: Two views. TECHNIQUE: AP and lateral radiographic images acquired of the left knee. LIMITATIONS: None. FINDINGS: MINERALIZATION: Normal. BONES: No acute fracture or dislocation. No worrisome bone lesions. JOINT: No effusion. SOFT TISSUES: No soft tissue swelling. No radio-opaque foreign body. OTHER: No other significant finding. IMPRESSION: NEGATIVE STUDY OF THE LEFT KNEE. NO RADIOGRAPHIC EVIDENCE OF ACUTE INJURY. TECHNICAL DOCUMENTATION: JOB ID: [id number] [employer]- All Rights Reserved Reading location - IP/workstation name: [email or web address]
== END ==
LOC: RAD 10:00
PROVIDERS: ATTEND Internal Medicine
DX: M25.562 Pain in left knee (principal)

== ENCOUNTER 2019-04-13 21:36 | Inpatient (IN) | payer MEDICAID ==
[2019-04-13] MEDS ORDERED: NORMAL SALINE 1000 ML 1,000 ML IV ONE (21:49)
[2019-04-13 22:06] LABS: VENOUS BLOOD BASE EXCESS 0.1 mmol/L; VENOUS BLOOD HCO3 23.2 mmol/L (20-32); VENOUS BLOOD PCO2 33.5 mmHg (35-63); VENOUS BLOOD PH 7.46 (7.30-7.42)
[2019-04-13 22:07] LABS: ABSOLUTE BASOPHILS # (AUTO) 0.1 10^3/uL (0.0-0.2); ABSOLUTE LYMPHOCYTES (AUTO) 1.1 10^3/uL (0.5-4.7); ABSOLUTE MONOCYTES (AUTO) 0.4 10^3/uL (0.1-1.4); ABSOLUTE NEUT (AUTO) 4.3 10^3/uL (1.7-8.2); BASOPHILS % (AUTO) 0.9 % (0-2); EOSINOPHILS % (AUTO) 0.5 % (0-6); HEMATOCRIT 41.8 % (37.9-51.0); HEMOGLOBIN 14.7 g/dL (13.5-17.0); LYMPHOCYTES % (AUTO) 18.7 % (13-45); MEAN CORPUSCULAR HEMOGLOBIN 31.2 pg (27.0-33.4); MEAN CORPUSCULAR HGB CONC 35.2 g/dL (32.0-36.0); MEAN CORPUSCULAR VOLUME 89 fl (80-97); MONOCYTES % (AUTO) 7.2 % (3-13); PLATELET COUNT 113 10^3/uL (150-450); RED BLOOD COUNT 4.72 10^6/uL (4.35-5.55); SEGMENTED NEUTROPHILS % (AUTO) 72.7 % (42-78); TOTAL CELLS COUNTED % (AUTO) 100 %; WHITE BLOOD COUNT 5.9 10^3/uL (4.0-10.5)
[2019-04-13 22:25] LABS: ALANINE AMINOTRANSFERASE 32 U/L (21-72); ALBUMIN 4.3 g/dL (3.5-5.0); ALKALINE PHOSPHATASE 60 U/L (38-126); ANION GAP 14 (5-19); ASPARTATE AMINO TRANSFERASE 26 U/L (17-59); BILIRUBIN,DIRECT 0.4 mg/dL (0.0-0.4); BILIRUBIN,TOTAL 2.9 mg/dL (0.2-1.3); BLOOD UREA NITROGEN 13 mg/dL (7-20); CARBON DIOXIDE 23 mmol/L (22-30); CHLORIDE 102 mmol/L (98-107); GLUCOSE 188 mg/dL (75-110); SODIUM 138.8 mmol/L (137-145); TOTAL PROTEIN 6.6 g/dL (6.3-8.2)
[2019-04-13 22:27] LABS: POTASSIUM 2.6 mmol/L (3.6-5.0)
--- NOTE | 2019-04-13 22:29 | RADIOLOGY REPORT (SQ) ---
EXAM DESCRIPTION: XR CHEST 1 VIEW COMPLETED DATE/TME: 04/13/2019 21:46 CLINICAL HISTORY: 48 years, Male, dyspnea COMPARISON: Multiple priors, most recent from 09/29/2017 NUMBER OF VIEWS: One TECHNIQUE: Single frontal view of the chest was obtained portably LIMITATIONS: None. FINDINGS: Cardiac and mediastinal contours are stable in appearance. Lungs are overall clear. No pleural effusion or pneumothorax. Visualized are suspected expansile lucent lesions located about the left anterior second and right anterior third ribs. There is also irregularity about the left glenoid extending into the coracoid process which appears expanded/sclerotic, presumably corresponding to the same process. IMPRESSION: Suspect expansile lytic lesions located about the left anterior second and right anterior third ribs with additional irregularity about the left glenoid extending into the coracoid process (which appears expanded/sclerotic), suspicious for malignancy. Correlate with dedicated CT of the chest, if not already previously performed at another institution. Otherwise, clear lungs. copyright 2010 [employer]- All Rights Reserved
--- NOTE | 2019-04-13 22:30 | EKG REPORT ---
SEVERITY:- OTHERWISE NORMAL ECG - SINUS TACHYCARDIA BORDERLINE LEFT AXIS DEVIATION : Confirmed by: Oscar Stewart 13-Apr-2019 22:29:30
[2019-04-13] MEDS ORDERED: AZITHROMYCIN 250 MG TABLET PO ONE (22:47)
[2019-04-13] MEDS ORDERED: ACETAMINOPHEN 325 MG TABLET PO ONE (22:47)
[2019-04-13] MEDS ORDERED: CEFTRIAXONE INJ 1000 MG VIAL IV ONE (22:47)
[2019-04-13] MEDS ORDERED: RINGERS SOLUTION,LACTATED 1,000 ML IV ONE (22:48)
--- NOTE | 2019-04-13 22:52 | ER Document Report ---
ED General <COLBY WOOD - Last Filed: 04/14/19 00:31> - General TRAVEL OUTSIDE OF THE [place] 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 Patient states that he began having a mildly productive cough 3 days ago that is been worsening since that time. States that he is coughing extremely frequently and is causing him to have a mild to moderate soreness at his ribs bilaterally worsened by coughing. Not improved by anything. Denies history of similar symptoms in the past. Denies any history of asthma or COPD. Not a current smoker. States that he became concerned today when his work of breathing became much worse prompting him to contact EMS. States that he does feel somewhat better after receiving nebulizers by EMS. Has not seen his primary care physician regarding today's concerns. Denies history of DVT or pulmonary embolus. (COLBY PRIETO) - Related Data Allergies/Adverse Reactions: Penicillins Allergy (Verified 09/29/17 08:57) Past Medical History - General Information source: Patient - Social History Smoking Status: Never Smoker Frequency of alcohol use: None Drug Abuse: None Family History: Reviewed & Not Pertinent - Past Medical History Cardiac Medical History: Denies: Hx Coronary Artery Disease, Hx Heart Attack, Hx Hypertension Pulmonary Medical History: Denies: Hx Asthma, Hx Bronchitis, Hx COPD, Hx Pneumonia Neurological Medical History: Denies: Hx Cerebrovascular Accident, Hx Seizures Renal/ Medical History: Denies: Hx Peritoneal Dialysis Musculoskeletal Medical History: Denies Hx Arthritis <COLBY PRIETO - Last Filed: 04/14/19 04:33> Review of Systems <COLBY PRIETO - Last Filed: 04/14/19 04:33> - Review of Systems Notes: Constitutional: Positive for fever. HENT: Negative for sore throat. Eyes: Negative for visual changes. Cardiovascular: Negative for chest pain. Respiratory: Positive for shortness of breath. Gastrointestinal: Negative for abdominal pain, vomiting or diarrhea. Genitourinary: Negative for dysuria. Musculoskeletal: Negative for back pain. Skin: Negative for rash. Neurological: Negative for headaches, weakness or numbness. 10 point ROS negative except as marked above and in HPI. (COLBY PRIETO) Physical Exam - Vital signs Interpretation: Tachycardic, Tachypneic, Febrile <COLBY PRIETO - Last Filed: 04/14/19 04:33> - Vital signs Vitals: Temp 98.5 F 04/13/19 21:42 Notes: PHYSICAL EXAMINATION: GENERAL: Moderately ill in appearance, mild increased work of breathing on initial assessment HEAD: Atraumatic, normocephalic. EYES: Pupils equal round and reactive to light, extraocular movements intact, sclera anicteric, conjunctiva are normal. ENT: nares patent, oropharynx clear without exudates. Dry mucous membranes. NECK: Normal range of motion, supple without lymphadenopathy LUNGS: Diminished breath sounds at the right base and right upper lobe. Mild i ncreased rate of breathing although no distress. HEART: Regular tachycardia without murmurs ABDOMEN: Soft, nontender, normoactive bowel sounds. No guarding, no rebound. No masses appreciated. EXTREMITIES: Normal range of motion, no pitting or edema. No cyanosis. NEUROLOGICAL: No focal neurological deficits. Moves all extremities spontaneously and on command. PSYCH: Normal mood, normal affect. SKIN: Warm, Dry, normal turgor, no rashes or lesions noted. (COLBY PRIETO) Course - Laboratory Result Diagrams: 04/13/19 21:50 04/13/19 21:50 <COLBY WOOD - Last Filed: 04/14/19 00:31> - Laboratory Result Diagrams: 04/13/19 21:50 04/13/19 21:50 - Diagnostic Test Radiology reviewed: Image reviewed, Reports reviewed <COLBY PRIETO - Last Filed: 04/14/19 04:33> - Re-evaluation Re-evalutation: 04/14/19 00:31 Dr. Prieto is currently in the middle of a respiratory cardiac arrest in pediatric patient. Therefore have reevaluate the patient. Patient says breathing is much improved. He still has some scattered wheezing. Oxygen saturation is 96% on 2 L nasal cannula. I will give him another breathing treatment. He currently does not have increased work of breathing. (COLBY WOOD) 04/13/19 22:49 Patient presents with 3 days of progressively worsening shortness of breath and cough. Found to be febrile by EMS 101.9 F hypoxic to 88% on room air. Does not normally have an oxygen dependency at baseline and has no history of restrictive or obstructive lung disease. Does have a history of multiple myeloma with active maintenance oral therapy at this time, status post marrow transplant with a history of DVT or pulmonary embolus. Chest x-ray shows lytic lesions in the ribs of which the patient is a known history although does not demonstrate an overt pneumonia. On my examination the patient is diminished in the right lower lobe and I do clinically suspect a pneumonia type picture p articular given patient's fever, cough and shortness of breath with associated hypoxia. However a pulmonary embolus could present with similar symptoms but particular if there was a pulmonary infarction involved and the patient is very high risk for this diagnosis. A CT of the chest will be obtained to better clarify for any evidence of a pneumonia and would also help clarify if there is an occult pneumonia not visible on chest x-ray. Patient's labs also demonstrate hypokalemia at 2.6 again of which the patient has a history. Potassium magnesium repletion have been initiated. His EKG is without prolonged QT or widened QRS complex. No peak T waves. Will continue to reassess at regular intervals. 04/14/19 01:18 Reassess the patient on several occasions both prior to being involved in the pediatric code and subsequent. The patient had an abrupt worsening of his shortness of breath with diffuse wheezing which was not present on my initial assessment. The patient was given multiple nebulizers, Solu-Medrol, and I greatly appreciate Dr. Wood evaluation. On my repeat assessment the patient is having some increased labor of breathing although his wheezing remains relatively unchanged. Given his ongoing tachycardia, mild tachypnea, I am concerned he may become fatigued and will therefore apply BiPAP at this time. His CT chest shows findings consistent with a possible right upper lobe pneumonia. Antibiotics have already been administered. Will discuss with the hospitalist for admission. 04/14/19 01:47 I have discussed with Dr. Huitron who is accepted the patient for admission (COLBY PRIETO) - Vital Signs Vital signs: Temp Pulse Resp BP Pulse Ox 97.7 F 27 H 130/65 H 95 04/14/19 03:01 04/14/19 03:01 04/14/19 03:01 04/14/19 03:01 - Laboratory Laboratory results interpreted by me: 04/13/19 04/13/19 04/13/19 21:50 21:50 21:50 Plt Count 113 L VBG pH 7.46 H VBG pCO2 33.5 L Potassium 2.6 L* Glucose 188 H Total Bilirubin 2.9 H - Diagnostic Test Radiology results interpreted by me: 04/13/19 22:51 Chest x-ray: Lytic lesions, no acute infiltrate (COLBY PRIETO) - EKG Interpretation by Me Additional EKG results interpreted by me: 04/14/19 01:49 Sinus Tachycardia, rate 121, no ST elevations or depressions. QTC is 426. (COLBY PRIETO) Critical Care Note - Critical Care Note Total time excluding time spent on procedures (mins): 45 <COLBY PRIETO - Last Filed: 04/14/19 04:33> - Critical Care Note Comments: Critical care time spent obtaining history from patient or surrogate, discussions with consultants, development of treatment plan with patient or surrogate, evaluation of patient's response to treatment, examination of patien t, ordering and performing treatments and interventions, ordering and review of laboratory studies, re-evaluation of patient's condition, ordering and review of radiographic studies and review of old charts (COLBY PRIETO) Discharge <COLBY WOOD - Last Filed: 04/14/19 00:31> - Discharge Admitting Provider: Tomy (Hospitalist) Unit Admitted: [facility] <COLBY PRIETO - Last Filed: 04/14/19 04:33> - Discharge Clinical Impression: Respiratory distress Right upper lobe pneumonia Qualifiers: Pneumonia type: due to unspecified organism Qualified Code(s): J18.1 - Lobar pneumonia, unspecified organism Sepsis Qualifiers: Sepsis type: sepsis due to unspecified organism Qualified Code(s): A41.9 - Sepsis, unspecified organism Condition: Fair Disposition: ADMITTED INPATIENT
[2019-04-13] MEDS ORDERED: IPRATROPIUM/ALBUTEROL 0.5-2.5 MG/3 ML AMPUL NEB ONE (23:39)
[2019-04-13] MEDS: POTASSI CL 20 MEQ/50 ML RIDER 20 MEQ/50 ML RTUPB IV SCH (23:42)
[2019-04-13] MEDS: MAGNESIUM SULFATE/D5W 1 GM/100 ML RTUPB IV SCH (23:42)
--- NOTE | 2019-04-13 23:51 | RADIOLOGY REPORT (SQ) ---
EXAM DESCRIPTION: CT CHEST ANGIOGRAPHY WITHOUT THEN WITH IV CONTRAST COMPLETED DATE/TME: 04/13/2019 22:43 CLINICAL HISTORY: 48 years, Male, eval cxr findings, ?PE COMPARISON: Plain radiograph earlier the same day; CT abdomen/pelvis from 05/12/2018 TECHNIQUE: CT chest angiography was performed following intravenous administration of contrast. Multiplanar reformatted images were provided. 3-D reformatted images were performed on an independent workstation (to include sagittal and coronal MIPS). Images stored on PACS. All CT scanners at this facility use dose modulation, iterative reconstruction, and/or weight based dosing when appropriate to reduce radiation dose to as low as reasonably achievable (ALARA). [facility]: Dose Right [facility]: CareDose [facility]: Dose Right [facility]: Teradose 4D [facility]: Gozent LIMITATIONS: Inadequate timing limits the assessment for pulmonary emboli to the lobar level. FINDINGS: Mixed attenuation opacity layers dependently within the trachea, indicating retained secretions. Central airways are otherwise patent. However, there is mild diffuse bronchial wall thickening. Lung windows show patchy tree-in-bud opacity throughout the right upper lobe. A solid 0.8 cm nodule is noted within the periphery of the right lower lobe, unchanged from 09/19/2017. An additional solid nodule is noted within the left upper lobe measuring 1.0 cm in size on image 27 of series 4, also unchanged from 09/19/2017. Lungs are otherwise clear. Mediastinal windows show a few mildly prominent mediastinal and bilateral hilar lymph nodes. For example, there is an enlarged right hilar lymph node measuring 1.7 x 1.5 cm in size on image 48 of series 3. This is new from the previous examination dated 09/19/2017. Heart and great vessels show no suspicious finding. The study is substantially limited for the evaluation of pulmonary emboli secondary to inadequate contrast bolus timing. No large filling defects are identified to the lobar level. Limited evaluation of the upper abdomen reveals cholelithiasis. No additional suspicious findings. Bone windows show an irregular mixed lucent/sclerotic lesion located within the left glenoid extending to the base of the coracoid and into the coracoid process itself. There is no associated pathologic fracture at the base of the coracoid, likely remote. This lesion was likely present on the previous CT chest dated 09/19/2017 that appears increasingly sclerotic. Several additional lucent lesions are identified within the sternum, manubrium, bilateral ribs, thoracic spine, and visualized lumbar spine. There is a new lytic lesion located within the right anterior sixth rib. Additional lytic lesions are evident about the left anterior second and right anterior third ribs, corresponding to the abnormalities seen on the recent chest radiograph. Overall, several of these lucent lesions demonstrate elements of peripheral sclerosis. Likewise, one of the lucent lesions located within the T10 vertebral body is associated with mild superior endplate deformity, suggesting a pathologic fracture (10% height loss). This is likely chronic. IMPRESSION: Limited examination for the evaluation of pulmonary emboli secondary to contrast bolus timing. No pulmonary emboli identified to the lobar level. Patchy tree-in-bud opacity throughout the right upper lobe, suspicious for an underlying infectious or inflammatory bronchiolitis. Abnormality seen on the recent chest radiograph corresponds to expansile lytic lesions, as above described. Several additional lytic lesions (with elements of sclerosis) are identified throughout the bony thorax, thoracolumbar spine, left scapula, manubrium, and sternum. Additionally, at least one of these lesions is definitively new from the previous CT chest dated 09/19/2017, specifically within the right anterior sixth rib. Overall, findings are in keeping with the provided history of multiple myeloma. Mildly prominent mediastinal and bilateral hilar lymph nodes, potentially reactive. Stable pulmonary nodules, as above. These are unchanged from 09/19/2017 Mild superior endplate deformity involving the T10 vertebral body and association with one of the lucent lesions, indicating a mild pathologic superior endplate fracture deformity (10% height loss), likely chronic. TECHNICAL DOCUMENTATION: Quality ID # [id number]: Final reports with documentation of one or more dose reduction techniques (e.g., Automated exposure control, adjustment of the mA and/or kV according to patient size, use of iterative reconstruction technique) copyright 2011 [id number]- All Rights Reserved
[2019-04-13] MEDS ORDERED: METHYLPREDNISOLONE INJ 125 MG/2 ML SDV IV ONE (23:53)
[2019-04-14] MEDS ORDERED: ALBUTEROL SULFATE 0.083% NEB 2.5 MG/3 ML AMPUL NEB ONE (00:31)
[2019-04-14] MEDS: MAGNESIUM SULFATE/D5W 1 GM/100 ML RTUPB IV SCH (00:43)
[2019-04-14] MEDS: POTASSI CL 20 MEQ/50 ML RIDER 20 MEQ/50 ML RTUPB IV SCH (01:09)
[2019-04-14] MEDS ORDERED: IPRATROPIUM/ALBUTEROL 0.5-2.5 MG/3 ML AMPUL NEB PRN (01:54)
[2019-04-14] MEDS ORDERED: ACETAMINOPHEN 325 MG TABLET PO PRN (01:54)
[2019-04-14] MEDS ORDERED: HYDRALAZINE HCL INJ/PF 20 MG/1 ML SDV IV PRN (01:54)
[2019-04-14] MEDS ORDERED: GUAIFENESIN SYRP 200 MG/10 ML UDC PO PRN (01:54)
[2019-04-14] MEDS: IPRATROPIUM/ALBUTEROL 0.5-2.5 MG/3 ML AMPUL NEB SCH ×2 (02:42→08:26)
[2019-04-14] MEDS: FLUTICASONE NASAL SPRAY 50 MCG/SPRY 120 SPRAY/16 GM NASL SCH ×2 (02:42→09:30)
[2019-04-14] MEDS: PREDNISONE 20 MG TABLET PO SCH ×2 (02:42→09:29)
--- NOTE | 2019-04-14 03:50 | PDOC H&P ---
History of Present Illness Admission Date/PCP: 04/14/19 01:54 NICOLASA CORONADO MD Patient complains of: Difficulty breathing History of Present Illness: MARCY STILL is a 48 year old male with a past medical history of multiple myeloma on oral chemotherapy with Dr. Coronado. He presents with 3 days of progressive shortness of breath and nonproductive cough developing fever over the last 24 hours he is brought to the emergency room via EMS a temperature 10 1.9 and hypoxia of 88% on room air. Work-up reveals chest x-ray with lytic lesions of the rib, CT chest reveals right upper lobe infiltrate. He started on BiPAP, supplemental oxygen, albuterol and Atrovent, empiric antibiotics and referred to the hospitalist for admission. Patient denies recent change in medication regiment though admits recent exposure to ill contacts at work. Patient has had several episodes of vomiting and diarrhea without blood or aspiration. Past Medical History Cardiac Medical History: Denies: Coronary Artery Disease, Myocardial Infarction, Hypertension Pulmonary Medical History: Denies: Asthma, Bronchitis, Chronic Obstructive Pulmonary Disease (COPD), Pneumonia Neurological Medical History: Denies: Seizures Malignancy Medical History: Reports: Leukemia - Multiple myeloma GI Medical History: Reports: Other - Chronic diarrhea Musculoskeltal Medical History: Denies: Arthritis Skin Medical History: Reports: None Psychiatric Medical History: Reports: None Traumatic Medical History: Reports: None Hematology: Denies: Anemia Infectious Medical History: Reports: None Social History Information Source: Patient Smoking Status: Never Smoker Frequency of Alcohol Use: None Drugs: None - Advance Directive Resuscitation Status: Full Code Family History Family History: Hypertension Parental Family History Reviewed: Yes Children Family History Reviewed: Yes Sibling(s) Family History Reviewed.: Yes Medication/Allergy Home Medications: Oxycodone HCl/Acetaminophen [Percocet 10-325 Mg Tablet] 1 each PO PRN PRN #20 tablet 09/13/17 Allergies/Adverse Reactions: Penicillins Allergy (Verified 09/29/17 08:57) Review of Systems Constitutional: ABSENT: chills, fever(s), headache(s), weight gain, weight loss Eyes: ABSENT: visual disturbances Ears: ABSENT: hearing changes Cardiovascular: ABSENT: chest pain, dyspnea on exertion, edema, orthropnea, palpitations Respiratory: ABSENT: cough, hemoptysis Gastrointestinal: PRESENT: diarrhea, nausea, vomiting. ABSENT: abdominal pain, constipation, hematemesis, hematochezia Genitourinary: ABSENT: dysuria, hematuria Musculoskeletal: ABSENT: joint swelling Integumentary: ABSENT: rash, wounds Neurological: ABSENT: abnormal gait, abnormal speech, confusion, dizziness, focal weakness, syncope Psychiatric: ABSENT: anxiety, depression, homidical ideation, suicidal ideation Endocrine: ABSENT: cold intolerance, heat intolerance, polydipsia, polyuria Hematologic/Lymphatic: ABSENT: easy bleeding, easy bruising Physical Exam Vital Signs: Temp Pulse Resp BP Pulse Ox 99.1 F 21 H 124/84 98 04/14/19 01:03 04/14/19 01:50 04/13/19 21:48 04/14/19 01:50 Intake & Output 04/12/19 04/13/19 04/14/19 11:59 11:59 11:59 Intake Total 2200 Balance 2200 Weight 93.894 kg General appearance: PRESENT: cooperative, mild distress. ABSENT: no acute distress, hard of hearing Head exam: PRESENT: atraumatic, normocephalic Ear exam: PRESENT: normal external ear exam Mouth exam: PRESENT: moist, tongue midline Neck exam: ABSENT: carotid bruit, JVD, lymphadenopathy, thyromegaly Respiratory exam: PRESENT: accessory muscle use, rales, rhonchi, symmetrical, tachypnea. ABSENT: prolonged expiratory phas Cardiovascular exam: PRESENT: +S1, +S2, tachycardia. ABSENT: diastolic murmur, rubs, systolic murmur Pulses: PRESENT: normal dorsalis pedis pul Vascular exam: PRESENT: normal capillary refill GI/Abdominal exam: PRESENT: normal bowel sounds, soft. ABSENT: distended, guarding, mass, organolmegaly, rebound, tenderness Rectal exam: PRESENT: deferred Extremities exam: PRESENT: full ROM. ABSENT: calf tenderness, clubbing, pedal edema Neurological exam: PRESENT: alert, awake, oriented to person, oriented to place, oriented to time, oriented to situation, CN II-XII grossly intact. ABSENT: motor sensory deficit Psychiatric exam: PRESENT: appropriate affect, normal mood. ABSENT: homicidal ideation, suicidal ideation Skin exam: PRESENT: dry, intact, warm. ABSENT: cyanosis, rash Results Laboratory Results: 04/13/19 21:50 04/13/19 21:50 04/13/19 04/13/19 04/13/19 21:50 21:50 21:50 WBC 5.9 RBC 4.72 Hgb 14.7 Hct 41.8 MCV 89 MCH 31.2 MCHC 35.2 RDW 14.0 Plt Count 113 L Seg Neutrophils % 72.7 Lymphocytes % 18.7 Monocytes % 7.2 Eosinophils % 0.5 Basophils % 0.9 Absolute Neutrophils 4.3 Absolute Lymphocytes 1.1 Absolute Monocytes 0.4 Absolute Eosinophils 0.0 Absolute Basophils 0.1 VBG pH VBG pCO2 VBG HCO3 VBG Base Excess Sodium 138.8 Potassium 2.6 L* Chloride 102 Carbon Dioxide 23 Anion Gap 14 BUN 13 Creatinine 1.17 Est GFR ( Amer) > 60 Est GFR (Non-Af Amer) > 60 Glucose 188 H Lactic Acid 1.7 Calcium 9.0 Magnesium Total Bilirubin 2.9 H AST 26 ALT 32 Alkaline Phosphatase 60 Total Protein 6.6 Albumin 4.3 04/13/19 04/13/19 21:50 21:50 WBC RBC Hgb Hct MCV MCH MCHC RDW Plt Count Seg Neutrophils % Lymphocytes % Monocytes % Eosinophils % Basophils % Absolute Neutrophils Absolute Lymphocytes Absolute Monocytes Absolute Eosinophils Absolute Basophils VBG pH 7.46 H VBG pCO2 33.5 L VBG HCO3 23.2 VBG Base Excess 0.1 Sodium Potassium Chloride Carbon Dioxide Anion Gap BUN Creatinine Est GFR ( Amer) Est GFR (Non-Af Amer) Glucose Lactic Acid Calcium Magnesium 1.7 Total Bilirubin AST ALT Alkaline Phosphatase Total Protein Albumin Impressions: Chest X-Ray 04/13/19 21:46 IMPRESSION: Suspect expansile lytic lesions located about the left anterior second and right anterior third ribs with additional irregularity about the left glenoid extending into the coracoid process (which appears expanded/sclerotic), suspicious for malignancy. Correlate with dedicated CT of the chest, if not already previously performed at another institution. Otherwise, clear lungs. copyright 2010 [employer] All Rights Reserved Chest/Abdomen CTA 04/13/19 22:43 IMPRESSION: Limited examination for the evaluation of pulmonary emboli secondary to contrast bolus timing. No pulmonary emboli identified to the lobar level. Patchy tree-in-bud opacity throughout the right upper lobe, suspicious for an underlying infectious or inflammatory bronchiolitis. Abnormality seen on the recent chest radiograph corresponds to expansile lytic lesions, as above described. Several additional lytic lesions (with elements of sclerosis) are identified throughout the bony thorax, thoracolumbar spine, left scapula, manubrium, and sternum. Additionally, at least one of these lesions is definitively new from the previous CT chest dated 09/19/2017, specifically within the right anterior sixth rib. Overall, findings are in keeping with the provided history of multiple myeloma. Mildly prominent mediastinal and bilateral hilar lymph nodes, potentially reactive. Stable pulmonary nodules, as above. These are unchanged from 09/19/2017 Mild superior endplate deformity involving the T10 vertebral body and association with one of the lucent lesions, indicating a mild pathologic superior endplate fracture deformity (10% height loss), likely chronic. TECHNICAL DOCUMENTATION: Quality ID # 436: Final reports with documentation of one or more dose reduction techniques (e.g., Automated exposure control, adjustment of the mA and/or kV according to patient size, use of iterative reconstruction technique) copyright 2011 [employer] All Rights Reserved Assessment and Plan - Diagnosis (1) Right upper lobe pneumonia Qualifiers: Pneumonia type: due to unspecified organism Qualified Code(s): J18.1 - L obar pneumonia, unspecified organism Is this a current diagnosis for this admission?: Yes Plan: Complicated by multiple myeloma, empiric antibiotics, pneumonia care set deployed, follow-up CBC and blood culture (2) Respiratory distress Is this a current diagnosis for this admission?: Yes Plan: Supplemental oxygen, albuterol and Atrovent, incentive spirometry, BiPAP as nee ded (3) Sepsis Qualifiers: Sepsis type: sepsis due to unspecified organism Qualified Code(s): A41.9 - Sepsis, unspecified organism Is this a current diagnosis for this admission?: Yes Plan: Secondary to #1, IV fluid challenge, empiric antibiotics, consider Solu-Cortef. (4) Hypokalemia Is this a current diagnosis for this admission?: Yes Plan: Secondary to chronic diarrhea, p.o. and IV repletion of potassium. Follow-up chemistry and magnesium - Time Time Spent with patient: 35 or more minutes - Inpatient Certification Medical Necessity: Need Close Monitoring Due to Risk of Patient Decompensation
[2019-04-14] MEDS ORDERED: HEPARIN SOD (PORCINE) 5,000 UNIT/ML 1 ML SYRINGE SUBCUT SCH (06:00)
[2019-04-14 09:35] VITALS: BP 137/77
[2019-04-14] MEDS ORDERED: AZITHROMYCIN 500 MG in DEXTROSE 5%-WATER 250 ML IV SCH (10:00)
[2019-04-14] MEDS ORDERED: CEFTRIAXONE 1 GM/D5W RTU 1 GM/50 ML RTUPB IV SCH (10:00)
[2019-04-14] MEDS ORDERED: CEFTRIAXONE SODIUM 1,000 MG in DEXTROSE 5%-WATER 50 ML IV SCH (10:00)
--- NOTE | 2019-04-14 11:26 | PDOC DISCHARGE SUMMARY ---
General - Admit/Disc Date/PCP Admission Date/Primary Care Provider: 04/14/19 01:54 NICOLASA CORONADO MD Discharge Date: 04/14/19 - Additional Information Resuscitation Status: Full Code Home Medications: Oxycodone HCl/Acetaminophen [Percocet 10-325 Mg Tablet] 1 each PO PRN PRN #20 tablet 09/13/17 History of Present Illness History of Present Illness: MARCY STILL is a 48 year old male Hospital Course Hospital Course: HPI on admission: MARCY STILL is a 48 year old male with a past medical history of multiple myeloma on oral chemotherapy with Dr. Coronado. He presents with 3 days of progressive shortness of breath and nonproductive cough developing fever over the last 24 hours he is brought to the emergency room via EMS a temperature 101.9 and hypoxia of 88% on room air. Work-up reveals chest x-ray with lytic lesions of the rib, CT chest reveals right upper lobe infiltrate. He started on BiPAP, supplemental oxygen, albuterol and Atrovent, empiric antibiotics and referred to the hospitalist for admission. Patient denies recent change in medication regiment though admits recent exposure to ill contacts at work. Patient has had several episodes of vomiting and diarrhea without blood or aspiration. Physical Exam Patient is no acute distress Alert oriented to time place person No anxiety or depression Head: atraumatic normocephalic Pupils: are equal reactive Neck: is supple and trachea is central no lymphadenopathy No pharyngeal erythema or exudates Heart: Tachycardia Lungs: clear no distress Abdomen: nontender nondistended Neurological exam: unremarkable Musculoskeletal: No joint swelling or effusion chronic lower back pain and tenderness No suicidal or homicidal ideation Hospital course: (1) Right upper lobe pneumonia Qualifiers: Pneumonia type: due to unspecified organism Qualified Code(s): J18.1 - Lobar pneumonia, unspecified organism Is this a current diagnosis for this admission?: Yes Plan: Complicated by multiple myeloma, empiric antibiotics, pneumonia care set deployed, follow-up CBC and blood culture (2) Respiratory distress Is this a current diagnosis for this admission?: Yes Plan: Supplemental oxygen, albuterol and Atrovent, incentive spirometry, BiPAP as needed (3) Sepsis Qualifiers: Sepsis type: sepsis due to unspecified organism Qualified Code(s): A41.9 - Sepsis, unspecified organism Is this a current diagnosis for this admission?: Yes Plan: Secondary to #1, IV fluid challenge, empiric antibiotics, consider Ronnie. (4) Hypokalemia Is this a current diagnosis for this admission?: Yes Plan: Secondary to chronic diarrhea, p.o. and IV repletion of potassium. Follow-up chemistry and magnesium -Patient was seen and examined today. He is tachycardic with heart rate around 115, sinus. He is on 4 L of oxygen via nasal cannula. He is slightly tachypne ic. His lungs more or less clear. Patient has an animal that is locked in his bedroom and as to go home. We discussed with his nursing staff and recommended consultation with social sciences lecturer or case picker because I think the patient is not stable to be discharged. He decided to leave AGAINST MEDICAL ADVICE. I offered to give him antibiotics even though he is leaving AMA. Apparently the patient left without waiting to receive prescription for antibiotics. Physical Exam Vital Signs: Temp Pulse Resp BP Pulse Ox 98.1 F 102 H 18 137/77 H 94 04/14/19 07:13 04/14/19 08:26 04/14/19 08:26 04/14/19 07:13 04/14/19 08:26 Intake & Output 04/13/19 04/14/19 04/15/19 06:59 06:59 06:59 Intake Total 2200 Output Total 300 Balance 1900 Weight 131 lb 2.801 oz Results Laboratory Results: 04/13/19 21:50 04/13/19 21:50 04/13/19 04/13/19 04/13/19 21:50 21:50 21:50 WBC 5.9 RBC 4.72 Hgb 14.7 Hct 41.8 MCV 89 MCH 31.2 MCHC 35.2 RDW 14.0 Plt Count 113 L Seg Neutrophils % 72.7 Lymphocytes % 18.7 Monocytes % 7.2 Eosinophils % 0.5 Basophils % 0.9 Absolute Neutrophils 4.3 Absolute Lymphocytes 1.1 Absolute Monocytes 0.4 Absolute Eosinophils 0.0 Absolute Basophils 0.1 VBG pH VBG pCO2 VBG HCO3 VBG Base Excess Sodium 138.8 Potassium 2.6 L* Chloride 102 Carbon Dioxide 23 Anion Gap 14 BUN 13 Creatinine 1.17 Est GFR ( Amer) > 60 Est GFR (Non-Af Amer) > 60 Glucose 188 H Lactic Acid 1.7 Calcium 9.0 Magnesium Total Bilirubin 2.9 H AST 26 ALT 32 Alkaline Phosphatase 60 Total Protein 6.6 Albumin 4.3 04/13/19 04/13/19 21:50 21:50 WBC RBC Hgb Hct MCV MCH MCHC RDW Plt Count Seg Neutrophils % Lymphocytes % Monocytes % Eosinophils % Basophils % Absolute Neutrophils Absolute Lymphocytes Absolute Monocytes Absolute Eosinophils Absolute Basophils VBG pH 7.46 H VBG pCO2 33.5 L VBG HCO3 23.2 VBG Base Excess 0.1 Sodium Potassium Chloride Carbon Dioxide Anion Gap BUN Creatinine Est GFR ( Amer) Est GFR (Non-Af Amer) Glucose Lactic Acid Calcium Magnesium 1.7 Total Bilirubin AST ALT Alkaline Phosphatase Total Protein Albumin Impressions: Chest X-Ray 04/13/19 21:46 IMPRESSION: Suspect expansile lytic lesions located about the left anterior second and right anterior third ribs with additional irregularity about the left glenoid extending into the coracoid process (which appears expanded/sclerotic), suspicious for malignancy. Correlate with dedicated CT of the chest, if not already previously performed at another institution. Otherwise, clear lungs. copyright 2011 [email or web address]- All Rights Reserved Chest/Abdomen CTA 04/13/19 22:43 IMPRESSION: Limited examination for the evaluation of pulmonary emboli secondary to contrast bolus timing. No pulmonary emboli identified to the lobar level. Patchy tree-in-bud opacity throughout the right upper lobe, suspicious for an underlying infectious or inflammatory bronchiolitis. Abnormality seen on the recent chest radiograph corresponds to expansile lytic lesions, as above described. Several additional lytic lesions (with elements of sclerosis) are identified throughout the bony thorax, thoracolumbar spine, left scapula, manubrium, and sternum. Additionally, at least one of these lesions is definitively new from the previous CT chest dated 09/19/2017, specifically within the right anterior sixth rib. Overall, findings are in keeping with the provided history of multiple myeloma. Mildly prominent mediastinal and bilateral hilar lymph nodes, potentially reactive. Stable pulmonary nodules, as above. These are unchanged from 09/19/2017 Mild superior endplate deformity involving the T10 vertebral body and association with one of the lucent lesions, indicating a mild pathologic superior endplate fracture deformity (10% height loss), likely chronic. TECHNICAL DOCUMENTATION: Quality ID # [id number]: Final reports with documentation of one or more dose reduction techniques (e.g., Automated exposure control, adjustment of the mA and/or kV according to patient size, use of iterative reconstruction technique) copyright 2011 [email or web address]- All Rights Reserved Qualifiers - * PATIENT BEING DISCHARGED WITH ANY OF THE FOLLOWING DIAGNOSIS: No Acute Heart Failure Is this a Heart Failure Patient?: No
== END 2019-04-14 09:40 | disposition left against medical advice (07) | DRG 193 ==
LOC: ER 21:36 → EH 04-14 01:54 → 3S 04-14 04:43
PROVIDERS: ADMIT Internal Medicine; ATTEND Internal Medicine
DX: J18.1 Lobar pneumonia, unspecified organism (principal); A41.9 Sepsis, unspecified organism; C90.01 Multiple myeloma in remission; Z94.81 Bone marrow transplant status; E87.6 Hypokalemia; K52.9 Noninfective gastroenteritis and colitis, unspecified
CPT/HCPCS: 36415; 71045; 71275; 80053; 82803; 83605; 83735; 85025; 87040; 93005; 93010; 94660; J0696; J2930; J3475; J3480; J3490; J7030; J7120; J7512; J7620

== ENCOUNTER 2020-02-14 06:50 | Inpatient (IN) | payer BC ==
[2020-02-14] MEDS ORDERED: MORPHINE SULFATE 10 MG/ML INJ IV ONE ×2 (07:18→10:27)
[2020-02-14] MEDS ORDERED: NORMAL SALINE 1000 ML 1,000 ML IV ONE (07:18)
[2020-02-14] MEDS ORDERED: ONDANSETRON HCL INJ/PF 4 MG/2 ML SDV IV ONE ×2 (07:18→10:27)
[2020-02-14 07:27] LABS: ABSOLUTE BASOPHILS # (AUTO) 0.1 10^3/uL (0.0-0.2); ABSOLUTE EOSINOPHILS # (AUTO) 0.5 10^3/uL (0.0-0.6); ABSOLUTE LYMPHOCYTES (AUTO) 1.7 10^3/uL (0.5-4.7); ABSOLUTE MONOCYTES (AUTO) 0.6 10^3/uL (0.1-1.4); ABSOLUTE NEUT (AUTO) 6.6 10^3/uL (1.7-8.2); BASOPHILS % (AUTO) 0.7 % (0-2); EOSINOPHILS % (AUTO) 4.8 % (0-6); HEMATOCRIT 40.3 % (37.9-51.0); HEMOGLOBIN 14.5 g/dL (13.5-17.0); LYMPHOCYTES % (AUTO) 17.6 % (13-45); MEAN CORPUSCULAR HEMOGLOBIN 31.8 pg (27.0-33.4); MEAN CORPUSCULAR HGB CONC 36.1 g/dL (32.0-36.0); MEAN CORPUSCULAR VOLUME 88 fl (80-97); MONOCYTES % (AUTO) 6.7 % (3-13); PLATELET COUNT 248 10^3/uL (150-450); RED BLOOD COUNT 4.57 10^6/uL (4.35-5.55); RED CELL DISTRIBUTION WIDTH 13.2 % (11.5-14.0); SEGMENTED NEUTROPHILS % (AUTO) 70.2 % (42-78); TOTAL CELLS COUNTED % (AUTO) 100 %; WHITE BLOOD COUNT 9.4 10^3/uL (4.0-10.5)
[2020-02-14 07:46] LABS: ALBUMIN 4.5 g/dL (3.5-5.0); ALKALINE PHOSPHATASE 87 U/L (38-126); ANION GAP 13 (5-19); ASPARTATE AMINO TRANSFERASE 48 U/L (17-59); BILIRUBIN,DIRECT 0.1 mg/dL (0.0-0.4); BILIRUBIN,TOTAL 2.1 mg/dL (0.2-1.3); BLOOD UREA NITROGEN 22 mg/dL (7-20); CALCIUM 10.3 mg/dL (8.4-10.2); CARBON DIOXIDE 27 mmol/L (22-30); CHLORIDE 98 mmol/L (98-107); CREATINE KINASE 219 U/L (55-170); GLUCOSE 110 mg/dL (75-110); POTASSIUM 3.4 mmol/L (3.6-5.0); TOTAL PROTEIN 7.6 g/dL (6.3-8.2)
--- NOTE | 2020-02-14 08:08 | ER Document Report ---
Entered by KEN MONTEZ SCRIBE 02/14/20 0718 Acting as scribe for:LILLIAM UGALDE MD ED GI/ - General Chief Complaint: Epigastric Pain Stated Complaint: ABDOMINAL PAIN Time Seen by Provider: 02/14/20 07:08 Primary Care Provider: NICOLASA CORONADO MD [Primary Care Provider] - Follow up as needed Mode of Arrival: Ambulatory Information source: Patient Notes: This 49-year-old male patient presents to the emergency department today with complaints of a 5-day history of epigastric and right upper quadrant abdominal pain. Patient states he has vomited over 30 times over this last 5 days. Patient states he has vomited so much because after he vomits he gets some relief for a short period time. Patient states his pain is exacerbated with food. Patient describes the pain as a sensation that his abdomen is a "bubble that keeps expanding and building up pressure". Patient is being treated for multiple myeloma and was taken off Revlimid 2 weeks ago due to a bilirubin of 2.1. TRAVEL OUTSIDE OF THE [place] IN LAST 30 DAYS: No - Related Data Allergies/Adverse Reactions: Penicillins Allergy (Verified 09/29/17 08:57) Past Medical History - General Information source: Patient - Social History Smoking Status: Former Smoker Cigarette use (# per day): No Frequency of alcohol use: None Drug Abuse: None Lives with: Family Family History: Reviewed & Not Pertinent Patient has suicidal ideation: No Patient has homicidal ideation: No Malignancy Medical History: Reports Hx Leukemia - Multiple myeloma Surgical Hx: Negative Review of Systems - Review of Systems Constitutional: No symptoms reported EENT: No symptoms reported Cardiovascular: No symptoms reported Respiratory: No symptoms reported Gastrointestinal: See HPI, Abdominal pain, Nausea, Vomiting Genitourinary: No symptoms reported Male Genitourinary: No symptoms reported Musculoskeletal: No symptoms reported Skin: No symptoms reported Hematologic/Lymphatic: No symptoms reported Neurological/Psychological: No symptoms reported -: Yes All other systems reviewed and negative Physical Exam - Vital signs Vitals: Temp Pulse Resp BP Pulse Ox 97.6 F 81 16 171/100 H 100 02/14/20 07:00 02/14/20 07:00 02/14/20 07:00 02/14/20 07:00 02/14/20 07:00 - Notes Notes: Physical Exam: General: Alert, appears uncomfortable, writhing around the bed in apparent pain. HEENT: Normocephalic. Atraumatic. PERRL. Extraocular movements intact. Oropharynx clear. Neck: Supple. Non-tender. Respiratory: No respiratory distress. Clear and equal breath sounds bilaterally. Cardiovascular: Regular rate and rhythm. Abdominal: Right upper quadrant and epigastric tenderness with palpation. No distension. Normal Bowel Sounds. Back: No gross abnormalities. Extremities: Moves all four extremities. Upper extremities: Normal inspection. Normal ROM. Lower extremities: Normal inspection. No edema. Normal ROM. Neurological: Normal cognition. AAOx4. Normal speech. Psychological: Normal affect. Normal Mood. Skin: Warm. Dry. Normal color. Course - Vital Signs Vital signs: Temp Pulse Resp BP Pulse Ox 97.6 F 81 16 171/100 H 100 02/14/20 07:00 02/14/20 07:00 02/14/20 07:00 02/14/20 07:00 02/14/20 07:00 - Laboratory Result Diagrams: 02/14/20 07:06 02/14/20 07:06 Laboratory results interpreted by me: 02/14/20 02/14/20 02/14/20 07:06 07:06 10:12 MCHC 36.1 H Potassium 3.4 L BUN 22 H Calcium 10.3 H Total Bilirubin 2.1 H ALT 59 H Creatine Kinase 219 H Urine Protein 100 H Urine Ketones 20 H - Diagnostic Test Radiology reviewed: Image reviewed, Reports reviewed - Gallbladder wall thickening to 6.2 mm, stones and sludge. Positive Vo sign. - EKG Interpretation by Me EKG shows normal: Sinus rhythm, Gordon, Intervals, QRS Complexes, ST-T Waves Rate: Normal - 75 Rhythm: NSR - Consults Dr. Chapman Time consulted: 10:28 Consulted provider: other - States he was in the middle of a case and would speak with me later about this patient. Discharge - Discharge Clinical Impression: Cholelithiasis with acute cholecystitis Qualifiers: Biliary obstruction: without biliary obstruction Qualified Code(s): K80.00 - Calculus of gallbladder with acute cholecystitis without obstruction Condition: Stable Disposition: ADMITTED INPATIENT Admitting Provider: Surgicalist Unit Admitted: Surgical Floor Referrals: NICOLASA CORONADO MD [Primary Care Provider] - Follow up as needed I personally performed the services described in the documentation, reviewed and edited the documentation which was dictated to the scribe in my presence, and it accurately records my words and actions.
--- NOTE | 2020-02-14 08:19 | EKG REPORT ---
SEVERITY:- OTHERWISE NORMAL ECG - SINUS RHYTHM EARLY PRECORDIAL TRANSITION : Confirmed by: Sonny Reardon MD 14-Feb-2020 08:17:58
[2020-02-14] MEDS ORDERED: CEFTRIAXONE 1 GM/D5W RTU 1 GM/50 ML RTUPB IV ONE (10:36)
[2020-02-14 10:42] LABS: APPEARANCE,URINE CLEAR; BILIRUBIN,URINE NEGATIVE (NEGATIVE); COLOR,URINE YELLOW; GLUCOSE, URINE NEGATIVE (NEGATIVE); KETONES,URINE 20 mg/dL (NEGATIVE); LEUKOCYTE ESTERASE,URINE NEGATIVE (NEGATIVE); NITRITE,URINE NEGATIVE (NEGATIVE); PROTEIN,URINE 100 mg/dL (NEGATIVE); URINE SPECIFIC GRAVITY 1.017; UROBILINOGEN,URINE NEGATIVE mg/dL (<2.0)
--- NOTE | 2020-02-14 10:43 | RADIOLOGY REPORT (SQ) ---
EXAM DESCRIPTION: U/S ABDOMEN LIMITED W/O DOP COMPLETED DATE/TIME: 02/14/2020 10:06 am REASON FOR STUDY: RUQ/epigastric pain W/ N V X 5 days COMPARISON: None. TECHNIQUE: Dynamic and static grayscale images acquired of the abdomen and recorded on PACS. Jimmyo adriano selected color Doppler and spectral images recorded. LIMITATIONS: None. FINDINGS: PANCREAS: Obscured by overlying bowel gas. LIVER: Fatty infiltration. No focal masses. LIVER VASCULATURE: Normal directional flow of the main portal vein and hepatic veins. GALLBLADDER: Gallstones. Wall is thickened measured 6.2 mm. There is gallbladder sludge. ULTRASOUND-DETECTED VO'S SIGN: Positive. INTRAHEPATIC DUCTS AND COMMON DUCT: CBD and intrahepatic ducts normal caliber. No filling defects. AORTA: No aneurysm. RIGHT KIDNEY: Normal size. Normal echogenicity. No solid or suspicious masses. No hydronephrosis. No calcifications. PERITONEAL AND RIGHT PLEURAL SPACE: No ascites or effusions. OTHER: No other significant findings. IMPRESSION: Thickened gallbladder wall with stones and sludge. Positive sonographic Vo's sign. Findings are consistent with acute cholecystitis. TECHNICAL DOCUMENTATION: JOB ID: [id number] 2010 [employer]- All Rights Reserved Reading location - IP/workstation name: [email or web address]
[2020-02-14] MEDS ORDERED: ONDANSETRON HCL INJ/PF 4 MG/2 ML SDV ONE (11:34)
[2020-02-14] MEDS ORDERED: SUCCINYLCHOLINE CHLORIDE INJ 200 MG/10 ML VIAL ONE (11:34)
[2020-02-14] MEDS ORDERED: GLYCOPYRROLATE 1 MG/5 ML VIAL ONE (11:34)
[2020-02-14] MEDS ORDERED: ROCURONIUM BROMIDE INJ 50 MG/5 ML VIAL IV ONE (11:34)
[2020-02-14] MEDS ORDERED: DEXAMETHASONE SOD PHOSPHATE INJ 4 MG/1 ML VIAL ONE ×2 (11:34→13:42)
[2020-02-14] MEDS ORDERED: NEOSTIGMINE METHYLSULFATE 10 MG/10 ML VIAL ONE (11:34)
--- NOTE | 2020-02-14 12:36 | PDOC H&P ---
History of Present Illness Admission Date/PCP: 02/14/20 12:19 NICOLASA CORONADO MD Patient complains of: Abdominal pain History of Present Illness: MARCY STILL is a 49 year old male presenting with 5-day history of right upper quadrant abdominal pain with nausea and vomiting. Patient has had prior episodes of this sort of abdominal pain in the past but this particular episode has been particularly severe and has been persistent. Patient denies any fever. Denies any jaundice. He does have a history of elevated total bilirubin that was attributed to his multiple myeloma medication which has been discontinued for a couple of weeks now. Patient does have multiple myeloma which is in remission. Past Medical History Cardiac Medical History: Denies: Coronary Artery Disease, Myocardial Infarction, Hypertension Pulmonary Medical History: Denies: Asthma, Bronchitis, Chronic Obstructive Pulmonary Disease (COPD), Pneumonia Neurological Medical History: Denies: Seizures Malignancy Medical History: Reports: Leukemia - Multiple myeloma Musculoskeltal Medical History: Denies: Arthritis Hematology: Denies: Anemia Past Surgical History Past Surgical History: Reports: Other - Orthopedic surgery for pathologic fracture. Social History Lives with: Family Smoking Status: Former Smoker Frequency of Alcohol Use: Social Hx Recreational Drug Use: No Drugs: None Hx Prescription Drug Abuse: No Family History Family History: Reviewed & Not Pertinent Parental Family History Reviewed: Yes Children Family History Reviewed: Yes Sibling(s) Family History Reviewed.: Yes Medication/Allergy Home Medications: Oxycodone HCl/Acetaminophen [Percocet 10-325 Mg Tablet] 1 each PO PRN PRN #20 tablet 09/13/17 Allergies/Adverse Reactions: Penicillins Allergy (Verified 09/29/17 08:57) Review of Systems All systems: reviewed and no additional remarkable complaints except as stated Respiratory: PRESENT: cough - Chronic intermittent cough Gastrointestinal: PRESENT: as per HPI Physical Exam Vital Signs: Temp Pulse Resp BP Pulse Ox 97.6 F 81 16 171/100 H 100 02/14/20 07:00 02/14/20 07:00 02/14/20 07:00 02/14/20 07:00 02/14/20 07:00 Intake & Output 02/13/20 02/14/20 02/15/20 06:59 06:59 06:59 Intake Total 1050 Balance 1050 Weight 91.2 kg General appearance: PRESENT: no acute distress, cooperative Eye exam: PRESENT: conjunctiva pink Neck exam: PRESENT: other - Supple with no masses and no tenderness Respiratory exam: PRESENT: clear to auscultation lynn Cardiovascular exam: PRESENT: RRR GI/Abdominal exam: PRESENT: other - Soft, nondistended, focal tenderness to palpation in the right upper quadrant without peritoneal signs. Neurological exam: PRESENT: alert, awake Psychiatric exam: PRESENT: appropriate affect Skin exam: PRESENT: warm Results Laboratory Results: 02/14/20 07:06 02/14/20 07:06 02/14/20 02/14/20 02/14/20 07:06 07:06 10:12 WBC 9.4 RBC 4.57 Hgb 14.5 Hct 40.3 MCV 88 MCH 31.8 MCHC 36.1 H RDW 13.2 Plt Count 248 Seg Neutrophils % 70.2 Sodium 138.4 Potassium 3.4 L Chloride 98 Carbon Dioxide 27 Anion Gap 13 BUN 22 H Creatinine 1.11 Est GFR ( Amer) > 60 Glucose 110 Calcium 10.3 H Total Bilirubin 2.1 H AST 48 Alkaline Phosphatase 87 Total Protein 7.6 Albumin 4.5 Lipase 126.9 Urine Color YELLOW Urine Appearance CLEAR Urine pH 9.0 Ur Specific [place] 1.017 Urine Protein 100 H Urine Glucose (UA) NEGATIVE Urine Ketones 20 H Urine Blood NEGATIVE Urine Nitrite NEGATIVE Ur Leukocyte Esterase NEGATIVE Urine WBC (Auto) 1 Urine RBC (Auto) 2 02/14/20 02/14/20 07:06 07:06 Creatine Kinase 219 H Troponin I < 0.012 Impressions: Abdomen Ultrasound 02/14/20 07:19 IMPRESSION: Thickened gallbladder wall with stones and sludge. Positive so nographic Ov's sign. Findings are consistent with acute cholecystitis. Assessment & Plan - Diagnosis (1) Cholelithiasis with acute cholecystitis Qualifiers: Biliary obstruction: without biliary obstruction Qualified Code(s): K80.00 - Calculus of gallbladder with acute cholecystitis without obstruction Is this a current diagnosis for this admission?: Yes Plan: Patient does have elevation of his total bilirubin that may be attributable to his multiple myeloma medication which was discontinued couple weeks ago. However with the setting of gallstones cannot entirely rule out choledocholithiasis. If it is feasible during the operation we will plan intraoperative cholangiogram. Plan laparoscopic cholecystectomy. I have discussed with the patient the risk and benefits of the procedure including risk of bile duct injury, intestinal injury, bleeding, infection, conversion to an open procedure, mistaken diagnosis. Patient understands and agrees to proceed. If his liver appears abnormal we will plan liver biopsy as well. And again if it is feasible to do a cholangiogram will obtain a cholangiogram.
[2020-02-14] MEDS ORDERED: FENTANYL CITRATE INJ/PF 100 MCG/2 ML AMPUL ONE (12:58)
[2020-02-14] MEDS ORDERED: BUPIVACAINE HCL 0.25 % INJ/PF (2.5 MG/1 ML) 30 ML VIAL ONE (12:59)
[2020-02-14] MEDS ORDERED: PROPOFOL INJ 200 MG/20 ML VIAL IV ONE (12:59)
[2020-02-14] MEDS ORDERED: MIDAZOLAM 2 MG/2 ML INJ ONE (12:59)
[2020-02-14] MEDS ORDERED: HYDROMORPHONE HCL INJ/PF 2 MG/ML AMPULE ONE (13:14)
[2020-02-14] MEDS ORDERED: ALBUTEROL SULFATE HFA (90 MCG/PUFF) 8 GM MDI IH ONE (13:15)
[2020-02-14] MEDS ORDERED: MORPHINE SULFATE 10 MG/ML INJ IV PRN (13:48)
[2020-02-14] MEDS ORDERED: MEPERIDINE HCL/PF INJ 25 MG/1 ML DISP.SYRIN IV PRN (13:48)
[2020-02-14] MEDS ORDERED: PROMETHAZINE HCL INJ 25 MG/1 ML VIAL IV PRN (13:48)
[2020-02-14] MEDS ORDERED: DIPHENHYDRAMINE HCL 50 MG/ML VIAL IV PRN (13:48)
[2020-02-14] MEDS ORDERED: FENTANYL CITRATE INJ/PF 100 MCG/2 ML AMPUL IV PRN ×3 (13:48)
[2020-02-14] MEDS ORDERED: ONDANSETRON HCL INJ/PF 4 MG/2 ML SDV IV PRN (13:48)
--- NOTE | 2020-02-14 15:40 | RADIOLOGY REPORT (SQ) ---
EXAM DESCRIPTION: CHOLANGIOGRAM OPERATIVE COMPLETED DATE/TIME: 02/14/2020 3:28 pm REASON FOR STUDY: CHOLANGIOGRAM IN SURGERY COMPARISON: None. FLUOROSCOPY TIME: 0.6 minutes Spot images saved to PACS. TECHNIQUE: Intra-operative images acquired during surgical procedure to evaluate progress. NUMBER OF IMAGES: 5 LIMITATIONS: None. FINDINGS: Fluoroscopy was provided for intraoperative procedure. Please refer to the operative repo rt further discussion. IMPRESSION: IMAGE(S) OBTAINED DURING PROCEDURE. COMMENT: Quality ID [id number]: Final reports for procedures using fluoroscopy that document radiation exp osure indices, or exposure time and number of fluorographic images (if radiation exposure indices are not available) Please consult full operative report of the attending physician for description of the procedure. TECHNICAL DOCUMENTATION: JOB ID: [id number] 2010 [employer]- All Rights Reserved Reading location - IP/workstation name: [email or web address]
[2020-02-14] MEDS ORDERED: DEXTROSE 50%-WATER 25 GM/50 ML DISP.SYRIN IV PRN ×2 (15:47)
[2020-02-14] MEDS ORDERED: DEXTROSE 40% GEL 15 GM TUBE PO PRN ×2 (15:47)
[2020-02-14] MEDS ORDERED: GLUCAGON,HUMAN RECOMB 1 MG INJ SUBCUT PRN (15:47)
[2020-02-14] MEDS ORDERED: ONDANSETRON 4 MG TAB.RAPDIS PO PRN (15:47)
--- NOTE | 2020-02-14 15:47 | Operative Report ---
Operative Report DATE OF SURGERY: 02/14/20 PREOPERATIVE DIAGNOSIS: Acute cholecystitis POSTOPERATIVE DIAGNOSIS: Acute cholecystitis. OPERATION: Laparoscopic cholecystectomy, intraoperative cholangiogram. SURGEON: ELYSE KIRKLAND ANESTHESIA: GA TISSUE REMOVED OR ALTERED: Gallbladder COMPLICATIONS: None ESTIMATED BLOOD LOSS: 100 cc INTRAOPERATIVE FINDINGS: Markedly thickened wall inflamed gallbladder. Normal- appearing common bile duct and common hepatic duct and right and left hepatic ducts with no evidence of common bile duct stones. PROCEDURE: Informed consent was obtained. Patient was brought to the operating room placed operating table in supine position. After satisfactory induction of general anesthesia, patient's abdomen was prepped and draped in usual sterile fashion. A supraumbilical midline incision was made and dissection carried down to the fascia the peritoneal cavity entered without difficulty. Murray trocar was inserted. Pneumoperitoneum produced good patient toleration. 5 mm trocar was placed in the subxiphoid location.Two 5 mm trochars were placed in the right subcostal location. The omentum was plastered to the gallbladder and it required peeling it off the gallbladder. It was also adhered to portions of the liver next to the gallbladder and it had to be dissected off of the liver. There was some bleeding during this portion of the procedure. The gallbladder wall was markedly thickened and inflamed and the gallbladder was markedly distended and therefore had to be decompressed with a decompression needle yielding dark fluid. The liver itself appeared normal. The gallbladder was grasped and retracted cephalad over the dome of the liver. The infundibulum of the gallbladder was grasped retracted laterally and inferiorly thus exposing calot's triangle. The cystic duct gallbladder junction was clearly identified. What appeared to be the cystic artery was seen in calot's triangle with fatty tissue around it. Cystic duct was clipped next to the gallbladder and then partially transected. Cholangiocatheter was then introduced and intraoperative cholangiogram was performed. The common bile duct and common hepatic duct and right and left hepatic ducts were all visualized and they appeared normal with no stones. No evidence of obstruction. Once the anatomy was clear, what was defined as the cystic artery was clipped and cholangiography was repeated demonstrating the anatomy unchanged. The cholangiocatheter was removed and the cystic duct was clipped and divided. Cystic artery was likewise taken. There was a posterior branch of cystic artery which was clipped and divided as well. The gallbladder was taken off the gallbladder bed using the hook electrocautery technique. The gallbladder wall was markedly thickened with indistinct plane between the gallbladder wall and the liver. This portion of the surgery was dif ficult with blood loss. The gallbladder was removed intack with an Endobag through the Murray trocar site fascial defect. The operative field was copiously irrigated and irrigant aspirated out. Irrigation fluid was clear at the end of the case. The gallbladder bed was raw but hemostasis appeared good. All trochars were removed under the direct vision a laparoscope to ensure hemostasis. The Murray trocar site fascial defect was closed with interrupted Vicryl sutures. All skin incisions were closed with subcuticular interrupted Monocryl sutures. Marcaine was injected at the port sites. Patient tolerated procedure well no apparent complications and was taken to the recovery area in stable condition.
[2020-02-14] MEDS ORDERED: PROMETHAZINE HCL INJ 25 MG/1 ML VIAL ONE (15:49)
[2020-02-14] MEDS: NORMAL SALINE 1000 ML 1,000 ML IV PRN (17:03)
[2020-02-14] MEDS: MORPHINE SULFATE 10 MG/ML INJ IV PRN (20:18)
[2020-02-15] MEDS: MORPHINE SULFATE 10 MG/ML INJ IV PRN (00:09)
[2020-02-15] MEDS: NORMAL SALINE 1000 ML 1,000 ML IV PRN ×2 (00:10→08:01)
[2020-02-15 05:46] LABS: HEMATOCRIT 34.3 % (37.9-51.0); MEAN CORPUSCULAR HEMOGLOBIN 31.7 pg (27.0-33.4); MEAN CORPUSCULAR HGB CONC 35.7 g/dL (32.0-36.0); MEAN CORPUSCULAR VOLUME 89 fl (80-97); PLATELET COUNT 138 10^3/uL (150-450); RED BLOOD COUNT 3.86 10^6/uL (4.35-5.55); RED CELL DISTRIBUTION WIDTH 13.3 % (11.5-14.0); WHITE BLOOD COUNT 6.3 10^3/uL (4.0-10.5)
[2020-02-15 05:49] LABS: HEMOGLOBIN 12.3 g/dL (13.5-17.0)
[2020-02-15 08:31] LABS: ALBUMIN 3.8 g/dL (3.5-5.0); ALKALINE PHOSPHATASE 70 U/L (38-126); ANION GAP 12 (5-19); ASPARTATE AMINO TRANSFERASE 56 U/L (17-59); BILIRUBIN,DIRECT 0.2 mg/dL (0.0-0.4); BILIRUBIN,TOTAL 1.1 mg/dL (0.2-1.3); BLOOD UREA NITROGEN 16 mg/dL (7-20); CALCIUM 8.1 mg/dL (8.4-10.2); CARBON DIOXIDE 23 mmol/L (22-30); CHLORIDE 104 mmol/L (98-107); GLUCOSE 112 mg/dL (75-110); POTASSIUM 3.7 mmol/L (3.6-5.0); TOTAL PROTEIN 6.5 g/dL (6.3-8.2)
--- NOTE | 2020-02-15 11:08 | PDOC PROGRESS REPORT ---
Subjective Progress Note for:: 02/15/20 Subjective:: Feels well. Tolerating liquid diet. Reason For Visit: CHOLELITHIASIS WITH ACUTE CHOLECYSTITIS Physical Exam Vital Signs: Temp Pulse Resp BP Pulse Ox 97.7 F 72 16 136/80 H 98 02/15/20 08:04 02/15/20 08:04 02/15/20 08:04 02/15/20 08:04 02/15/20 08:04 Intake & Output 02/14/20 02/15/20 02/16/20 06:59 06:59 06:59 Intake Total 3975 1000 Output Total 665 Balance 3310 1000 Weight 92.3 kg General appearance: PRESENT: no acute distress, cooperative Respiratory exam: PRESENT: clear to auscultation lynn Cardiovascular exam: PRESENT: RRR GI/Abdominal exam: PRESENT: other - Soft, nondistended, minimal tenderness. Extremities exam: PRESENT: other - No leg swelling or tenderness Results Laboratory Results: 02/15/20 05:09 02/15/20 07:39 02/15/20 02/15/20 05:09 07:39 WBC 6.3 RBC 3.86 L Hgb 12.3 L D Hct 34.3 L MCV 89 MCH 31.7 MCHC 35.7 RDW 13.3 Plt Count 138 L Sodium 139.4 Potassium 3.7 Chloride 104 Carbon Dioxide 23 Anion Gap 12 BUN 16 Creatinine 0.83 Est GFR ( Amer) > 60 Glucose 112 H Calcium 8.1 L Total Bilirubin 1.1 AST 56 Alkaline Phosphatase 70 Total Protein 6.5 Albumin 3.8 02/14/20 02/14/20 07:06 07:06 Creatine Kinase 219 H Troponin I < 0.012 Impressions: Cholangiogram 02/14/20 00:00 IMPRESSION: IMAGE(S) OBTAINED DURING PROCEDURE. Abdomen Ultrasound 02/14/20 07:19 IMPRESSION: Thickened gallbladder wall with stones and sludge. Positive sonographic Vo's sign. Findings are consistent with acute cholecystitis. Assessment & Plan - Diagnosis (1) Cholelithiasis with acute cholecystitis Qualifiers: Biliary obstruction: without biliary obstruction Qualified Code(s): K80.00 - Calculus of gallbladder with acute cholecystitis without obstruction Is this a current diagnosis for this admission?: Yes Plan: Status post laparoscopic cholecystectomy and intraoperative cholangiogram. Patient looks good. Will discharge patient home.
--- NOTE | 2020-02-15 11:12 | PDOC DISCHARGE SUMMARY ---
General - Admit/Disc Date/PCP Admission Date/Primary Care Provider: 02/14/20 12:19 NICOLASA CORONADO MD Discharge Date: 02/15/20 - Discharge Diagnosis Final Diagnosis: Acute cholecystitis with cholelithiasis. - Assessment Summary: Patient underwent laparoscopic cholecystectomy with intraoperative cholangiogram. Intraoperative cholangiogram was normal. Patient did well postoperatively. He was feeling much better at the time of discharge. His total bilirubin had improved to 1.1. Patient is now been discharged home in good condition. He is encouraged to stay active at home but avoid strenuous activity. His work involves a lot of physical activity therefore he is to stay out of work until his follow-up visit at [facility] in 2 weeks. He is to call for any problems such as fever, jaundice, increasing pain. He is to follow a low-fat diet. No prescription pain medications were given to the patient. He may resume his home medications. - Additional Information Resuscitation Status: Full Code Discharge Diet: Other (Comments) - Low-fat diet Discharge Activity: Activity As Tolerated - Stay active but avoid strenuous activity. Referrals: [facility] [Provider Group] - 02/25/20 8:45 am Home Medications: Lenalidomide [Revlimid] 10 mg PO DAILY 02/14/20 Losartan Potassium 50 mg PO DAILY 02/14/20 Multivitamin [Multivitamins] 1 tab PO DAILY 02/14/20 Potassium Chloride 20 meq PO DAILY 02/14/20 History of Present Illiness History of Present Illness: MARCY STILL is a 49 year old male presenting with 5-day history of right upper quadrant abdominal pain with nausea and vomiting. Patient has had prior episodes of this sort of abdominal pain in the past but this particular episode has been particularly severe and has been persistent. Patient denies any fever. Denies any jaundice. He does have a history of elevated total bilirubin that was attributed to his multiple myeloma medication which has been discontinued for a couple of weeks now. Patient does have multiple myeloma which is in remission. Physical Exam Vital Signs: Temp Pulse Resp BP Pulse Ox 97.7 F 72 16 136/80 H 98 02/15/20 08:04 02/15/20 08:04 02/15/20 08:04 02/15/20 08:04 02/15/20 08:04 Intake & Output 02/14/20 02/15/20 02/16/20 06:59 06:59 06:59 Intake Total 3975 1000 Output Total 665 Balance 3310 1000 Weight 92.3 kg Results Laboratory Results: WBC 6.3 10^3/uL (4.0-10.5) 02/15/20 05:09 RBC 3.86 10^6/uL (4.35-5.55) L 02/15/20 05:09 Hgb 12.3 g/dL (13.5-17.0) L D 02/15/20 05:09 Hct 34.3 % (37.9-51.0) L 02/15/20 05:09 MCV 89 fl (80-97) 02/15/20 05:09 MCH 31.7 pg (27.0-33.4) 02/15/20 05:09 MCHC 35.7 g/dL (32.0-36.0) 02/15/20 05:09 RDW 13.3 % (11.5-14.0) 02/15/20 05:09 Plt Count 138 10^3/uL (150-450) L 02/15/20 05:09 Lymph % (Auto) 17.6 % (13-45) 02/14/20 07:06 [place] % (Auto) 6.7 % (3-13) 02/14/20 07:06 Eos % (Auto) 4.8 % (0-6) 02/14/20 07:06 Baso % (Auto) 0.7 % (0-2) 02/14/20 07:06 Absolute Neuts (auto) 6.6 10^3/uL (1.7-8.2) 02/14/20 07:06 Absolute Lymphs (auto) 1.7 10^3/uL (0.5-4.7) 02/14/20 07:06 Absolute Monos (auto) 0.6 10^3/uL (0.1-1.4) 02/14/20 07:06 Absolute Eos (auto) 0.5 10^3/uL (0.0-0.6) 02/14/20 07:06 Absolute Basos (auto) 0.1 10^3/uL (0.0-0.2) 02/14/20 07:06 Seg Neutrophils % 70.2 % (42-78) 02/14/20 07:06 Sodium 139.4 mmol/L (137-145) 02/15/20 07:39 Potassium 3.7 mmol/L (3.6-5.0) 02/15/20 07:39 Chloride 104 mmol/L (98-107) 02/15/20 07:39 Carbon Dioxide 23 mmol/L (22-30) 02/15/20 07:39 Anion Gap 12 (5-19) 02/15/20 07:39 BUN 16 mg/dL (7-20) 02/15/20 07:39 Creatinine 0.83 mg/dL (0.52-1.25) 02/15/20 07:39 Est GFR ( Amer) > 60 (>60) 02/15/20 07:39 Est GFR (MDRD) Non-Af > 60 (>60) 02/15/20 07:39 Glucose 112 mg/dL (75-110) H 02/15/20 07:39 Calcium 8.1 mg/dL (8.4-10.2) L 02/15/20 07:39 Total Bilirubin 1.1 mg/dL (0.2-1.3) 02/15/20 07:39 Direct Bilirubin 0.2 mg/dL (0.0-0.4) 02/15/20 07:39 Neonat Total Bilirubin Not Reportable 02/15/20 07:39 Neonat Direct Bilirubin Not Reportable 02/15/20 07:39 Neonat Indirect Bili Not Reportable 02/15/20 07:39 AST 56 U/L (17-59) 02/15/20 07:39 ALT 60 U/L (<50) H 02/15/20 07:39 Alkaline Phosphatase 70 U/L (38-126) 02/15/20 07:39 Creatine Kinase 219 U/L (55-170) H 02/14/20 07:06 Troponin I < 0.012 ng/mL 02/14/20 07:06 Total Protein 6.5 g/dL (6.3-8.2) 02/15/20 07:39 Albumin 3.8 g/dL (3.5-5.0) 02/15/20 07:39 Lipase 126.9 U/L (23-300) 02/14/20 07:06 Urine Color YELLOW 02/14/20 10:12 Urine Appearance CLEAR 02/14/20 10:12 Urine pH 9.0 (5.0-9.0) 02/14/20 10:12 Ur Specific [place] 1.017 02/14/20 10:12 Urine Protein 100 mg/dL (NEGATIVE) H 02/14/20 10:12 Urine Glucose (UA) NEGATIVE mg/dL (NEGATIVE) 02/14/20 10:12 Urine Ketones 20 mg/dL (NEGATIVE) H 02/14/20 10:12 Urine Blood NEGATIVE (NEGATIVE) 02/14/20 10:12 Urine Nitrite NEGATIVE (NEGATIVE) 02/14/20 10:12 Urine Bilirubin NEGATIVE (NEGATIVE) 02/14/20 10:12 Urine Urobilinogen NEGATIVE mg/dL (<2.0) 02/14/20 10:12 Ur Leukocyte Esterase NEGATIVE (NEGATIVE) 02/14/20 10:12 Urine WBC (Auto) 1 /HPF 02/14/20 10:12 Urine RBC (Auto) 2 /HPF 02/14/20 10:12 Urine Mucus (Auto) OCC /LPF 02/14/20 10:12 Urine Ascorbic Acid NEGATIVE (NEGATIVE) 02/14/20 10:12 02/14/20 07:06 Troponin I < 0.012 Impressions: Cholangiogram 02/14/20 00:00 IMPRESSION: IMAGE(S) OBTAINED DURING PROCEDURE. Abdomen Ultrasound 02/14/20 07:19 IMPRESSION: Thickened gallbladder wall with stones and sludge. Positive sonographic Vo's sign. Findings are consistent with acute cholecystitis.
--- NOTE | 2020-02-15 11:14 | PDOC PROGRESS REPORT ---
Subjective Reason For Visit: CHOLELITHIASIS WITH ACUTE CHOLECYSTITIS Physical Exam Vital Signs: Temp Pulse Resp BP Pulse Ox 97.7 F 72 16 136/80 H 98 02/15/20 08:04 02/15/20 08:04 02/15/20 08:04 02/15/20 08:04 02/15/20 08:04 Intake & Output 02/14/20 02/15/20 02/16/20 06:59 06:59 06:59 Intake Total 3975 1000 Output Total 665 Balance 3310 1000 Weight 92.3 kg Results Laboratory Results: 02/15/20 05:09 02/15/20 07:39 02/15/20 02/15/20 05:09 07:39 WBC 6.3 RBC 3.86 L Hgb 12.3 L D Hct 34.3 L MCV 89 MCH 31.7 MCHC 35.7 RDW 13.3 Plt Count 138 L Sodium 139.4 Potassium 3.7 Chloride 104 Carbon Dioxide 23 Anion Gap 12 BUN 16 Creatinine 0.83 Est GFR ( Amer) > 60 Glucose 112 H Calcium 8.1 L Total Bilirubin 1.1 AST 56 Alkaline Phosphatase 70 Total Protein 6.5 Albumin 3.8 02/14/20 02/14/20 07:06 07:06 Creatine Kinase 219 H Troponin I < 0.012 Impressions: Cholangiogram 02/14/20 00:00 IMPRESSION: IMAGE(S) OBTAINED DURING PROCEDURE. Abdomen Ultrasound 02/14/20 07:19 IMPRESSION: Thickened gallbladder wall with stones and sludge. Positive sonographic Vo's sign. Findings are consistent with acute cholecystitis. Assessment & Plan - Diagnosis (1) Cholelithiasis with acute cholecystitis Qualifiers: Biliary obstruction: without biliary obstruction Qualified Code(s): K80.00 - Calculus of gallbladder with acute cholecystitis without obstruction Is this a current diagnosis for this admission?: Yes Plan: Of note I have discussed with the patient the importance of follow-up at [facility] in 2 weeks to make sure that his surgical pathology specimen has been reviewed. Pathology report is pending at the time of discharge.
[2020-02-15 11:17] VITALS: BP 127/78
== END 2020-02-15 12:00 | disposition home or self-care (01) | DRG 418 ==
LOC: ER 06:50 → EH 12:19 → 4N 16:55
PROVIDERS: ATTEND Surgery
PROC: BF13YZZ Fluoroscopy of Gallbladder and Bile Ducts using Other Contrast (ICD-10-PCS; 2020-02-14)
PROC: 0FT44ZZ Resection of Gallbladder, Percutaneous Endoscopic Approach (ICD-10-PCS; principal; 2020-02-14 13:00)
DX: K80.00 Calculus of gallbladder with acute cholecystitis without obstruction (principal); C90.00 Multiple myeloma not having achieved remission; R05 Cough; Z79.899 Other long term (current) drug therapy; Z87.891 Personal history of nicotine dependence; Z88.0 Allergy status to penicillin
CPT/HCPCS: 36415; 74300; 76705; 790; 80053; 81001; 82550; 83690; 84484; 85025; 85027; 88304; 93005; 93010; 96361; 96365; 96375; 96376; 99285; J0330; J0696; J1100; J1170; J2250; J2270; J2405; J2550; J2704; J2710; J3010; J3490; J7030; Q9967

== ENCOUNTER → 2020-09-26 | Outpatient (CLI) | payer BC ==
--- NOTE | 2020-09-27 11:42 | RADIOLOGY REPORT (SQ) ---
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 TECHNIQUE: Images of the axial and proximal appendicular skeleton are obtained, along with lateral s kull and frontal chest films. LIMITATIONS: None. FINDINGS: AP CHEST: No bony findings. Lungs are clear. LATERAL SKULL: No definitive lytic lesions. Changes seen likely related to pacchionian granulation. AP BOTH HUMERI: Surgical changes right humerus with IM saniya. Expansion midshaft likely related to a p revious pathologic fracture. Multiple small lucencies of the mid and distal diaphysis of the left hu merus. No impending fracture. There also appear to be lesions in the coracoid. TWO-VIEW LUMBAR SPINE: No worrisome bone lesions. TWO-VIEW THORACIC SPINE: No worrisome bone lesions. AP PELVIS: Possible lesion in the medial left iliac wing. AP BOTH FEMURS: 2 cm lesion midshaft right femur. Left femur are unremarkable. OTHER: No finding in the tibia fibula bilateral. IMPRESSION: Specific positive findings are noted in the left humerus, coracoid, right midshaft femur . Possible lesions in the skull and left iliac wing. Treated lesion midshaft right humerus. No evidence for impending fractures. TECHNICAL DOCUMENTATION: JOB ID: [id number] 2010 [employer]- All Rights Reserved Reading location - IP/workstation name: [email or web address]
== END ==
LOC: RAD 14:36
PROVIDERS: ATTEND Physician Assistant Medical
DX: C90.00 Multiple myeloma not having achieved remission (principal)
CPT/HCPCS: 77075

== ENCOUNTER → 2020-12-19 | Outpatient (CLI) | payer BC ==
--- NOTE | 2020-12-19 12:48 | RADIOLOGY REPORT (SQ) ---
EXAM DESCRIPTION: SHOULDER LEFT 2 OR MORE VIEWS IMAGES COMPLETED DATE/TIME: 12/19/2020 10:36 am REASON FOR STUDY: (M25.512)PAIN IN LEFT SHOULDER M25.512 PAIN IN LEFT SHOULDER COMPARISON: 04/14/2019 and 09/26/2020 NUMBER OF VIEWS: Three views. TECHNIQUE: Internal rotation, external rotation, and Y view images acquired of the left shoulder. LIMITATIONS: None. FINDINGS: MINERALIZATION: Normal. BONES: Abnormal appearance of the scapular neck and coracoid process, similar to that seen on compari son imaging ; there appears to be a chronic fracture of the same. Chronic widening of the acromiocla vicular joint with intervening ossicle, stable. Moderate glenohumeral degenerative changes. JOINTS: No dislocation. VISUALIZED LUNGS AND RIBS: No pneumothorax. No rib fracture. SOFT TISSUES: No radiopaque foreign body. OTHER: No other significant finding. IMPRESSION: Stable radiographic appearance of the shoulder demonstrating expansion and fragmentation of the coracoid process and chronic widening of the acromioclavicular joint. Background of moderate glenohumeral degenerative changes. TECHNICAL DOCUMENTATION: JOB ID: [id number] 2010 [employer]- All Rights Reserved Reading location - IP/workstation name: [email or web address]
== END ==
LOC: RAD 10:21
PROVIDERS: ATTEND Internal Medicine
DX: M25.512 Pain in left shoulder (principal)